=== PATIENT | male | born 1980 | race Two or more races ===

== ENCOUNTER 2016-09-27 14:27 | Inpatient (IN) | payer MEDICAID ==
[~2016-09-27] VITALS: Ht 195.6 cm; Wt 103.9 kg
[2016-09-27 14:50] VITALS: BP 127/77
[2016-09-27 14:57] LABS: BASOPHILS # (AUTO) 0.1 /CMM (0.0-0.2); BASOPHILS % (AUTO) 0.5 % (0.0-2.0); DIFF TOTAL % 100 %; HEMATOCRIT 38 % (39-51); HEMOGLOBIN 11.4 g/dL (13.5-17.5); LYMPHOCYTES # (AUTO) 0.2 /CMM (0.8-4.8); LYMPHOCYTES % (AUTO) 1.2 % (20.0-44.0); MEAN CORPUSCULAR HEMOGLOBIN 21 PG (26.0-33.0); MEAN CORPUSCULAR HGB CONC 30 g/dl (31.0-36.0); MEAN CORPUSCULAR VOLUME 71 fL (80-96); MONOCYTES # (AUTO) 0.1 /CMM (0.1-1.30); MONOCYTES % (AUTO) 0.5 % (2.0-12.0); NEUTROPHILS # (AUTO) 19.3 /CMM (1.8-8.9); NEUTROPHILS % (AUTO) 97.8 % (43.0-81.0); PLATELET COUNT (AUTO) 213 /CMM (150-450); RED BLOOD CELL COUNT(AUTO) 5.37 MIL/uL (4.5-6.0); WHITE BLOOD COUNT (AUTO) 19.7 K/uL (4.3-11.0)
[2016-09-27] MEDS ORDERED: IV NS 0.9% 1,000 ML BAG IV ONE (15:00)
[2016-09-27 15:12] LABS: INR 1.1 (0.87-1.13); PROTHROMBIN TIME 11.6 SECS (9.5-12.7)
[2016-09-27 15:20] LABS: ANION GAP 13 (5-14); CALCIUM, SERUM 8.6 mg/dL (8.5-10.1); CARBON DIOXIDE 24 mmol/L (21-32); CHLORIDE 98 mmol/L (98-107); CREATININE 0.5 mg/dL (0.6-1.3); GFR 189 mL/min (>60); GLUCOSE 168 mg/dL (74-106); POTASSIUM 4.2 mmol/L (3.5-5.1); SODIUM SERUM 131 mmol/L (136-145); UREA NITROGEN, BLOOD 19 mg/dL (7-18)
[2016-09-27 15:21] LABS: ALANINE AMINOTRANSFERASE 76 U/L (12-78); ALBUMIN 2.7 g/dL (3.4-5.0); ASPARTATE AMINOTRANSFERASE 45 U/L (15-37); BILIRUBIN,DIRECT 1.1 mg/dL (0.0-0.2); BILIRUBIN,TOTAL 1.4 mg/dL (0.2-1.0); INDIRECT BILIRUBIN 0.3 mg/dL (0.0-1.1); TOTAL PROTEIN, SERUM 8.3 g/dL (6.4-8.2)
[2016-09-27 15:39] LABS: TROPONIN I < 0.017 ng/mL (0.00-0.056)
[2016-09-27] MEDS ORDERED: IV NS 0.9% 2,000 ML ONE (15:48)
[2016-09-27] MEDS ORDERED: IV SET PRIMARY PUMP SET 1 EA INFUS.SET MC ONE ×3 (15:48→21:15)
[2016-09-27] MEDS ORDERED: PHENOBARBITAL SODIUM 130 MG/ML VIAL ONE (15:58)
[2016-09-27] MEDS ORDERED: LEVOFLOXACIN 750 MG /D5W 150ML 150 ML IV ONE ×2 (16:00→16:19)
[2016-09-27] MEDS ORDERED: LORAZEPAM ORAL SOLN 2 MG/ML ORAL.CONC PO PRN (16:00)
[2016-09-27] MEDS ORDERED: VANCOMYCIN 1 GM in IV D5W 250 ML IV ONE (16:00)
[2016-09-27] MEDS ORDERED: PIPERACILLIN /TAZOBACTAM 3.375 G in IV D5W 50 ML IV ONE ×2 (16:00→19:30)
[2016-09-27] MEDS ORDERED: PHENOBARBITAL 60 MG/15 ML UDC NG SCH (16:00)
[2016-09-27] MEDS ORDERED: PHENOBARBITAL 30 MG TABLET ONE ×2 (16:02→22:24)
[2016-09-27 16:06] LABS: BAND % (MANUAL) 19 % (0.0-5.0); LYMPHOCYTES % (MANUAL) 1 % (16-48)
[2016-09-27] MEDS ORDERED: LORAZEPAM 1 MG TABLET ONE (16:46)
[2016-09-27] MEDS ORDERED: POLY119P2 GT (16:50)
[2016-09-27] MEDS ORDERED: INSU3INS6 SQ (16:50)
[2016-09-27] MEDS ORDERED: NA P133E RC (16:50)
[2016-09-27] MEDS ORDERED: LEVA1.2524 NEB (16:50)
[2016-09-27] MEDS ORDERED: LORA2TAB GT (16:50)
[2016-09-27] MEDS ORDERED: METO5SOL2 GT (16:50)
[2016-09-27] MEDS ORDERED: POTA20LI4 GT (16:50)
[2016-09-27] MEDS ORDERED: IPRA0.2S49 NEB (16:50)
[2016-09-27] MEDS ORDERED: ASCO250T6 PO (16:50)
[2016-09-27] MEDS ORDERED: INSU100V27 SQ (16:50)
[2016-09-27] MEDS ORDERED: DIPH25CA83 GT (16:50)
[2016-09-27] MEDS ORDERED: PHEN64.8 GT (16:50)
[2016-09-27] MEDS ORDERED: BISA10SU8 RC (16:50)
[2016-09-27] MEDS ORDERED: LORA2TAB95 GT (16:50)
[2016-09-27] MEDS ORDERED: BACL10TA PO (16:50)
[2016-09-27] MEDS ORDERED: ACET100V5 NEB (16:50)
[2016-09-27] MEDS ORDERED: ASCO250T5 GT (16:50)
[2016-09-27] MEDS ORDERED: MULT9LIQ6 GT (16:50)
[2016-09-27] MEDS ORDERED: LACT10SO GT (16:50)
[2016-09-27] MEDS ORDERED: SILD20TA2 GT (16:50)
[2016-09-27] MEDS ORDERED: DIGO125T GT (16:50)
[2016-09-27] MEDS ORDERED: ALBU2.5V38 NEB (16:50)
[2016-09-27] MEDS ORDERED: OMEP20TA68 PO (16:50)
[2016-09-27] MEDS ORDERED: ACET-2605 GT (16:50)
[2016-09-27] MEDS ORDERED: SENN8.8S11 GT (16:50)
[2016-09-27] MEDS ORDERED: IBUP-1482 GT (16:50)
[2016-09-27] MEDS ORDERED: METO5SOL20 GT (16:50)
[2016-09-27] MEDS ORDERED: SUCR1ORA6 GT (16:50)
[2016-09-27] MEDS ORDERED: IV NS 0.9% 1,000 ML IV PRN (19:08)
[2016-09-27 19:12] LABS: KETONES,URINE Negative (NEGATIVE); LEUKOCYTE ESTERASE ,URINE Large (NEGATIVE); PH,URINE 6.5 (5.0-8.0)
[2016-09-27 19:13] LABS: ADD UA MICROSCOPIC YES
[2016-09-27 19:29] LABS: ADD URINE CULTURE YES; WBC,URINE TOO NUMEROUS TO COUN /HPF (0-3)
[2016-09-27] MEDS ORDERED: ACETAMINOPHEN 650 MG/SUPP.RECT RC PRN (19:30)
[2016-09-27] MEDS ORDERED: BISACODYL SUPP (10 MG) 10 MG/SUPP.RECT SUPP.RECT RC PRN (19:30)
[2016-09-27] MEDS ORDERED: MAG HYDROX/AL HYDROX/SIMETH 30 ML UDC PO PRN (19:30)
[2016-09-27] MEDS ORDERED: ZOLPIDEM TARTRATE 5 MG TABLET PO PRN (19:30)
[2016-09-27] MEDS ORDERED: DEXTROSE 50%-WATER 50 ML DISP.SYRIN IV PRN (19:30)
[2016-09-27] MEDS ORDERED: ONDANSETRON HCL/PF 4 MG/2 ML VIAL IVP PRN (19:30)
[2016-09-27] MEDS ORDERED: Z GUARD REMEDY 2 OZ OINT TP PRN (19:30)
[2016-09-27 19:35] VITALS: BP 132/84
[2016-09-27 20:30] VITALS: BP 123/75
[2016-09-27] MEDS ORDERED: SUCRALFATE 1 G/10 ML UDC GT SCH (21:00)
[2016-09-27] MEDS ORDERED: SECONDARY IV SET 1 EA INFUS.SET MC ONE (21:15)
[2016-09-27] MEDS: SUCRALFATE 1 G/10 ML UDC GT SCH (21:22)
[2016-09-27] MEDS: PIPERACILLIN /TAZOBACTAM 3.375 G in IV D5W 50 ML IV SCH (21:24)
[2016-09-27] MEDS: ENOXAPARIN SODIUM 40 MG/0.4 ML DISP.SYRIN SQ SCH (21:28)
[2016-09-27] MEDS ORDERED: FOS GT PRN (21:30)
[2016-09-27] MEDS ORDERED: [UNRECOGNIZED DRUG - OTHER] GT PRN (21:30)
[2016-09-27] MEDS ORDERED: INULIN GT PRN (21:30)
[2016-09-27] MEDS: PHENOBARBITAL 30 MG TABLET PO SCH (22:45)
[2016-09-27] MEDS ORDERED: FIBERSOURCE HN 1,000 ML BOTTLE GT PRN (23:00)
[2016-09-27] MEDS: LORAZEPAM 1 MG TABLET GT SCH (23:24)
[2016-09-27] MEDS: BLOOD SUGAR DIAGNOSTIC 1 EACH STRIP IN SCH (23:24)
[2016-09-27] MEDS: diphenhydrAMINE HCL 25 MG CAPSULE PO SCH (23:24)
[2016-09-28] VITALS: BP 103/72
[2016-09-28] MEDS ORDERED: ALBUTEROL FS 2.5 MG/3 ML VIAL.NEB NEB SCH
[2016-09-28] MEDS ORDERED: IPRATROPIUM NEB FS 0.5 MG/2.5 ML AMPUL.NEB NEB SCH
[2016-09-28] MEDS: PIPERACILLIN /TAZOBACTAM 3.375 G in IV D5W 50 ML IV SCH ×4 (01:33→20:56)
[2016-09-28] MEDS: IV NS 0.9% 1,000 ML IV PRN ×2 (01:34→14:04)
[2016-09-28 04:00] VITALS: BP 105/70
[2016-09-28] MEDS: BLOOD SUGAR DIAGNOSTIC 1 EACH STRIP IN SCH ×4 (05:30→23:32)
[2016-09-28] MEDS: diphenhydrAMINE HCL 25 MG CAPSULE PO SCH ×3 (05:31→18:46)
[2016-09-28] MEDS: LORAZEPAM 1 MG TABLET GT SCH ×5 (05:31→23:32)
[2016-09-28] MEDS: ALBUTEROL FS 2.5 MG/3 ML VIAL.NEB NEB SCH ×3 (07:25→19:40)
[2016-09-28] MEDS: IPRATROPIUM NEB FS 0.5 MG/2.5 ML AMPUL.NEB NEB SCH ×3 (07:25→19:40)
[2016-09-28 08:00] VITALS: BP 118/80
[2016-09-28 08:16] LABS: DIFF TOTAL % 100 %; EOSINOPHILS # (AUTO) 0.1 /CMM (0.0-0.7); EOSINOPHILS % (AUTO) 0.7 % (0.0-6.0); HEMATOCRIT 36 % (39-51); HEMOGLOBIN 11.1 g/dL (13.5-17.5); LYMPHOCYTES # (AUTO) 0.7 /CMM (0.8-4.8); LYMPHOCYTES % (AUTO) 5.7 % (20.0-44.0); MEAN CORPUSCULAR HEMOGLOBIN 22 PG (26.0-33.0); MEAN CORPUSCULAR HGB CONC 31 g/dl (31.0-36.0); MEAN CORPUSCULAR VOLUME 71 fL (80-96); MONOCYTES # (AUTO) 0.6 /CMM (0.1-1.30); MONOCYTES % (AUTO) 4.7 % (2.0-12.0); NEUTROPHILS # (AUTO) 11.3 /CMM (1.8-8.9); NEUTROPHILS % (AUTO) 88.9 % (43.0-81.0); PLATELET COUNT (AUTO) 224 /CMM (150-450); RED BLOOD CELL COUNT(AUTO) 4.98 MIL/uL (4.5-6.0); WHITE BLOOD COUNT (AUTO) 12.7 K/uL (4.3-11.0)
[2016-09-28 08:35] LABS: CALCIUM, SERUM 8.3 mg/dL (8.5-10.1); CREATININE 0.6 mg/dL (0.6-1.3); POTASSIUM 3.7 mmol/L (3.5-5.1)
[2016-09-28] MEDS ORDERED: DIGOXIN 0.125 MG TABLET GT PRN (09:00)
[2016-09-28] MEDS: BACLOFEN (10 MG) 10 MG TABLET PO SCH ×3 (09:17→16:43)
[2016-09-28] MEDS: SUCRALFATE 1 G/10 ML UDC GT SCH ×4 (09:17→20:57)
[2016-09-28] MEDS: PANTOPRAZOLE 40 MG VIAL IV SCH (09:18)
[2016-09-28] MEDS: PHENOBARBITAL 30 MG TABLET PO SCH ×2 (09:18→16:42)
[2016-09-28] MEDS ORDERED: FLU VACC QS 2016-17(36MOS+)/PF 0.5 ML DISP.SYRIN IM ONE (10:30)
[2016-09-28 12:00] VITALS: BP 118/79
[2016-09-28 12:22] LABS: ANISOCYTOSIS 2+; HYPOCHROMASIA 1+; LYMPHOCYTES % (MANUAL) 12 % (16-48); MICROCYTOSIS 1+; PLATELET ESTIMATE ADEQUATE
[2016-09-28] MEDS ORDERED: PNEUMOCOCCAL 23-VAL P-SAC VAC 0.5 ML VIAL SQ ONE (13:00)
[2016-09-28] MEDS: INSULIN REGULAR, HUMAN 100 UNIT/ML 3 ML VIAL SQ PRN ×3 (13:10→23:33)
[2016-09-28] MEDS: [UNRECOGNIZED DRUG - OTHER] GT PRN (13:12)
[2016-09-28] MEDS: INULIN GT PRN (13:12)
[2016-09-28] MEDS: FOS GT PRN (13:12)
[2016-09-28] MEDS ORDERED: Z GUARD REMEDY 2 OZ OINT TP PRN (14:00)
[2016-09-28] MEDS ORDERED: K PHOS NEUTRAL 250 MG TABLET PO ONE (15:30)
[2016-09-28 16:00] VITALS: BP 109/61
[2016-09-28] MEDS ORDERED: SECONDARY IV SET 1 EA INFUS.SET MC ONE ×2 (16:38→23:17)
[2016-09-28] MEDS: Magnesium 1GM/D5W 100ML PREMIX 100 ML IV SCH ×2 (16:42→18:46)
[2016-09-28] MEDS: Z GUARD REMEDY 2 OZ OINT TP SCH (16:43)
[2016-09-28] MEDS: NEOMY SULF/BACITRAC ZN/POLY 15 GM TUBE TP SCH (16:45)
[2016-09-28 20:00] VITALS: BP 113/70
[2016-09-28] MEDS ORDERED: LORAZEPAM INJ 2 MG/ML VIAL IV PRN (20:00)
[2016-09-28] MEDS: ENOXAPARIN SODIUM 40 MG/0.4 ML DISP.SYRIN SQ SCH (21:01)
[2016-09-28] MEDS ORDERED: VANCOMYCIN 1 GM in IV D5W 250 ML IV ONE (22:30)
[2016-09-28] MEDS ORDERED: VANCOMYCIN 1 GM VIAL ONE (22:34)
[2016-09-28] MEDS ORDERED: IV D5W 250 ML IV ONE (23:14)
[2016-09-29] VITALS: BP 115/69
[2016-09-29] MEDS: PIPERACILLIN /TAZOBACTAM 3.375 G in IV D5W 50 ML IV SCH ×4 (01:01→18:14)
[2016-09-29] MEDS: diphenhydrAMINE HCL 25 MG CAPSULE PO SCH ×4 (01:01→18:15)
[2016-09-29] MEDS: IPRATROPIUM NEB FS 0.5 MG/2.5 ML AMPUL.NEB NEB SCH ×4 (01:22→19:45)
[2016-09-29] MEDS: ALBUTEROL FS 2.5 MG/3 ML VIAL.NEB NEB SCH ×4 (01:22→19:45)
[2016-09-29 04:00] VITALS: BP 109/69
[2016-09-29] MEDS: LORAZEPAM 1 MG TABLET GT SCH ×3 (05:49→18:15)
[2016-09-29] MEDS: INSULIN REGULAR, HUMAN 100 UNIT/ML 3 ML VIAL SQ PRN ×2 (05:59→13:15)
[2016-09-29] MEDS: BLOOD SUGAR DIAGNOSTIC 1 EACH STRIP IN SCH ×3 (05:59→18:20)
[2016-09-29 07:08] LABS: BASOPHILS % (AUTO) 0.1 % (0.0-2.0); DIFF TOTAL % 100 %; EOSINOPHILS # (AUTO) 0.1 /CMM (0.0-0.7); EOSINOPHILS % (AUTO) 0.8 % (0.0-6.0); HEMATOCRIT 32 % (39-51); HEMOGLOBIN 10.2 g/dL (13.5-17.5); LYMPHOCYTES % (AUTO) 10.9 % (20.0-44.0); MEAN CORPUSCULAR HEMOGLOBIN 22 PG (26.0-33.0); MEAN CORPUSCULAR HGB CONC 32 g/dl (31.0-36.0); MEAN CORPUSCULAR VOLUME 71 fL (80-96); MONOCYTES # (AUTO) 0.6 /CMM (0.1-1.30); NEUTROPHILS # (AUTO) 7.8 /CMM (1.8-8.9); NEUTROPHILS % (AUTO) 82.2 % (43.0-81.0); PLATELET COUNT (AUTO) 208 /CMM (150-450); RED BLOOD CELL COUNT(AUTO) 4.56 MIL/uL (4.5-6.0); WHITE BLOOD COUNT (AUTO) 9.5 K/uL (4.3-11.0)
[2016-09-29 07:29] LABS: CALCIUM, SERUM 8.2 mg/dL (8.5-10.1); CREATININE 0.6 mg/dL (0.6-1.3); POTASSIUM 3.3 mmol/L (3.5-5.1)
[2016-09-29 08:00] VITALS: BP 121/78
[2016-09-29] MEDS ORDERED: VANCOMYCIN 1.25 GM in IV D5W 500 ML IV SCH (08:00)
[2016-09-29] MEDS ORDERED: FEE PK DOSING 1 MIN EA MC ONE (08:12)
[2016-09-29] MEDS: MULTIVITAMIN LIQ 5 ML UDC GT SCH (09:47)
[2016-09-29] MEDS: INULIN GT PRN (09:47)
[2016-09-29] MEDS: [UNRECOGNIZED DRUG - OTHER] GT PRN (09:47)
[2016-09-29] MEDS: PANTOPRAZOLE 40 MG VIAL IV SCH (09:47)
[2016-09-29] MEDS: SUCRALFATE 1 G/10 ML UDC GT SCH ×4 (09:47→21:45)
[2016-09-29] MEDS: FOS GT PRN (09:47)
[2016-09-29] MEDS: BACLOFEN (10 MG) 10 MG TABLET PO SCH ×3 (09:47→18:15)
[2016-09-29] MEDS: ASCORBIC ACID 500 MG TABLET GT SCH (09:48)
[2016-09-29] MEDS: Z GUARD REMEDY 2 OZ OINT TP SCH ×2 (09:48→18:16)
[2016-09-29] MEDS: PHENOBARBITAL 30 MG TABLET PO SCH ×2 (09:48→18:15)
[2016-09-29] MEDS: NEOMY SULF/BACITRAC ZN/POLY 15 GM TUBE TP SCH (09:49)
[2016-09-29 12:00] VITALS: BP_SYST 119; BP_DIAS 77; BP_DIAS 78
[2016-09-29] MEDS ORDERED: POTASSIUM CHLORIDE 20 MEQ TAB.PRT.SR PO SCH (12:30)
[2016-09-29] MEDS: IV NS 0.9% 1,000 ML IV PRN ×2 (12:58→21:45)
[2016-09-29] MEDS ORDERED: POTASSIUM CHLORIDE 20 MEQ TAB.PRT.SR PO ONE (14:30)
[2016-09-29] MEDS: VANCOMYCIN HCL 125 MG/2.5 ML ORAL.SUSP PO SCH ×2 (15:00→21:45)
[2016-09-29 16:00] VITALS: BP 118/77
[2016-09-29 20:00] VITALS: BP 124/83
[2016-09-30] VITALS: BP 141/95
[2016-09-30] MEDS: diphenhydrAMINE HCL 25 MG CAPSULE PO SCH ×4 (00:57→18:06)
[2016-09-30] MEDS: FOS GT PRN ×2 (00:57→17:06)
[2016-09-30] MEDS: INULIN GT PRN ×2 (00:57→17:06)
[2016-09-30] MEDS: [UNRECOGNIZED DRUG - OTHER] GT PRN ×2 (00:57→17:06)
[2016-09-30] MEDS: LORAZEPAM 1 MG TABLET GT SCH ×4 (00:57→18:06)
[2016-09-30] MEDS: PIPERACILLIN /TAZOBACTAM 3.375 G in IV D5W 50 ML IV SCH ×3 (00:57→14:09)
[2016-09-30] MEDS: BLOOD SUGAR DIAGNOSTIC 1 EACH STRIP IN SCH ×4 (01:00→17:06)
[2016-09-30] MEDS: IPRATROPIUM NEB FS 0.5 MG/2.5 ML AMPUL.NEB NEB SCH ×4 (01:42→19:50)
[2016-09-30] MEDS: ALBUTEROL FS 2.5 MG/3 ML VIAL.NEB NEB SCH ×4 (01:42→19:50)
[2016-09-30 04:00] VITALS: BP 138/86
[2016-09-30] MEDS: VANCOMYCIN HCL 125 MG/2.5 ML ORAL.SUSP PO SCH ×4 (05:58→18:08)
[2016-09-30] MEDS: IV NS 0.9% 1,000 ML IV PRN ×2 (06:11→15:04)
[2016-09-30 07:25] LABS: CALCIUM, SERUM 8.6 mg/dL (8.5-10.1); CREATININE 0.5 mg/dL (0.6-1.3); PHOSPHORUS 2.7 mg/dL (2.5-4.9); POTASSIUM 3.9 mmol/L (3.5-5.1)
[2016-09-30 08:00] VITALS: BP 131/84
[2016-09-30] MEDS: PHENOBARBITAL 30 MG TABLET PO SCH ×2 (08:37→17:06)
[2016-09-30] MEDS: MULTIVITAMIN LIQ 5 ML UDC GT SCH (08:37)
[2016-09-30] MEDS: BACLOFEN (10 MG) 10 MG TABLET PO SCH ×3 (08:37→17:06)
[2016-09-30] MEDS: PANTOPRAZOLE 40 MG VIAL IV SCH (08:37)
[2016-09-30] MEDS: ASCORBIC ACID 500 MG TABLET GT SCH (08:37)
[2016-09-30] MEDS: Z GUARD REMEDY 2 OZ OINT TP SCH ×2 (08:38→17:07)
[2016-09-30] MEDS: SUCRALFATE 1 G/10 ML UDC GT SCH ×4 (08:41→21:31)
[2016-09-30] MEDS: NEOMY SULF/BACITRAC ZN/POLY 15 GM TUBE TP SCH (09:52)
[2016-09-30 12:00] VITALS: BP 135/88
[2016-09-30] MEDS: Magnesium 1GM/D5W 100ML PREMIX 100 ML IV SCH ×2 (12:37→15:05)
[2016-09-30] MEDS: INSULIN REGULAR, HUMAN 100 UNIT/ML 3 ML VIAL SQ PRN ×2 (12:42→17:35)
[2016-09-30 16:00] VITALS: BP 127/85
[2016-09-30] MEDS ORDERED: FEE PK DOSING 1 MIN EA MC ONE (17:46)
[2016-09-30] MEDS: GENTAMICIN 120 MG in IV D5W 100 ML IV SCH (19:04)
[2016-09-30 20:00] VITALS: BP 119/72
[2016-10-01] VITALS: BP 113/82
[2016-10-01] MEDS: diphenhydrAMINE HCL 25 MG CAPSULE PO SCH ×2 (00:44→05:18)
[2016-10-01] MEDS: VANCOMYCIN HCL 125 MG/2.5 ML ORAL.SUSP PO SCH ×4 (00:44→18:18)
[2016-10-01] MEDS: LORAZEPAM 1 MG TABLET GT SCH ×4 (00:44→17:13)
[2016-10-01] MEDS: BLOOD SUGAR DIAGNOSTIC 1 EACH STRIP IN SCH ×4 (00:46→17:18)
[2016-10-01] MEDS: IPRATROPIUM NEB FS 0.5 MG/2.5 ML AMPUL.NEB NEB SCH ×3 (01:49→12:42)
[2016-10-01] MEDS: ALBUTEROL FS 2.5 MG/3 ML VIAL.NEB NEB SCH ×3 (01:50→12:42)
[2016-10-01] MEDS: GENTAMICIN 120 MG in IV D5W 100 ML IV SCH ×3 (02:40→18:17)
[2016-10-01] MEDS: INULIN GT PRN ×2 (02:40→18:23)
[2016-10-01] MEDS: [UNRECOGNIZED DRUG - OTHER] GT PRN ×2 (02:40→18:23)
[2016-10-01] MEDS: FOS GT PRN ×2 (02:40→18:23)
[2016-10-01] MEDS: IV NS 0.9% 1,000 ML IV PRN ×2 (02:40→17:13)
[2016-10-01 04:00] VITALS: BP 122/77
[2016-10-01 07:06] LABS: CALCIUM, SERUM 8.7 mg/dL (8.5-10.1); CREATININE 0.6 mg/dL (0.6-1.3); POTASSIUM 3.7 mmol/L (3.5-5.1)
[2016-10-01 08:00] VITALS: BP 107/68
[2016-10-01] MEDS: BACLOFEN (10 MG) 10 MG TABLET PO SCH ×3 (08:31→16:26)
[2016-10-01] MEDS: ASCORBIC ACID 500 MG TABLET GT SCH (08:31)
[2016-10-01] MEDS: MULTIVITAMIN LIQ 5 ML UDC GT SCH (08:31)
[2016-10-01] MEDS: SUCRALFATE 1 G/10 ML UDC GT SCH ×4 (08:31→20:56)
[2016-10-01] MEDS: PHENOBARBITAL 30 MG TABLET PO SCH ×2 (08:31→16:26)
[2016-10-01] MEDS: PANTOPRAZOLE 40 MG VIAL IV SCH (08:31)
[2016-10-01] MEDS: Z GUARD REMEDY 2 OZ OINT TP SCH ×2 (08:32→16:27)
[2016-10-01] MEDS: NEOMY SULF/BACITRAC ZN/POLY 15 GM TUBE TP SCH (08:32)
[2016-10-01] MEDS ORDERED: diphenhydrAMINE HCL 25 MG CAPSULE PO PRN (10:30)
[2016-10-01 12:00] VITALS: BP 118/79
[2016-10-01] MEDS ORDERED: SECONDARY IV SET 1 EA INFUS.SET MC ONE (12:28)
[2016-10-01] MEDS: Magnesium 1GM/D5W 100ML PREMIX 100 ML IV SCH ×2 (12:32→13:39)
[2016-10-01 16:00] VITALS: BP 123/76
[2016-10-01 20:00] VITALS: BP 114/65
[2016-10-02] VITALS: BP 107/66
[2016-10-02] MEDS: VANCOMYCIN HCL 125 MG/2.5 ML ORAL.SUSP PO SCH ×5 (00:01→23:52)
[2016-10-02] MEDS: LORAZEPAM 1 MG TABLET GT SCH ×5 (00:02→23:52)
[2016-10-02] MEDS: BLOOD SUGAR DIAGNOSTIC 1 EACH STRIP IN SCH ×5 (00:03→23:52)
[2016-10-02] MEDS: ALBUTEROL FS 2.5 MG/3 ML VIAL.NEB NEB SCH ×4 (01:31→19:56)
[2016-10-02] MEDS: IPRATROPIUM NEB FS 0.5 MG/2.5 ML AMPUL.NEB NEB SCH ×4 (01:31→19:56)
[2016-10-02] MEDS: GENTAMICIN 120 MG in IV D5W 100 ML IV SCH ×3 (02:02→17:01)
[2016-10-02 04:00] VITALS: BP 99/61
[2016-10-02] MEDS: IV NS 0.9% 1,000 ML IV PRN ×2 (06:09→19:00)
[2016-10-02 07:28] LABS: BASOPHILS % (AUTO) 0.3 % (0.0-2.0); DIFF TOTAL % 100 %; EOSINOPHILS # (AUTO) 0.5 /CMM (0.0-0.7); EOSINOPHILS % (AUTO) 4.4 % (0.0-6.0); HEMATOCRIT 37 % (39-51); HEMOGLOBIN 11.5 g/dL (13.5-17.5); LYMPHOCYTES # (AUTO) 2.6 /CMM (0.8-4.8); MEAN CORPUSCULAR HEMOGLOBIN 22 PG (26.0-33.0); MEAN CORPUSCULAR HGB CONC 31 g/dl (31.0-36.0); MEAN CORPUSCULAR VOLUME 71 fL (80-96); MONOCYTES # (AUTO) 0.8 /CMM (0.1-1.30); MONOCYTES % (AUTO) 7.2 % (2.0-12.0); NEUTROPHILS # (AUTO) 6.9 /CMM (1.8-8.9); NEUTROPHILS % (AUTO) 64.1 % (43.0-81.0); PLATELET COUNT (AUTO) 261 /CMM (150-450); RED BLOOD CELL COUNT(AUTO) 5.25 MIL/uL (4.5-6.0); WHITE BLOOD COUNT (AUTO) 10.7 K/uL (4.3-11.0)
[2016-10-02 07:41] LABS: CALCIUM, SERUM 8.8 mg/dL (8.5-10.1); CREATININE 0.6 mg/dL (0.6-1.3); PHOSPHORUS 4.2 mg/dL (2.5-4.9); POTASSIUM 3.8 mmol/L (3.5-5.1)
[2016-10-02 08:00] VITALS: BP 125/80
[2016-10-02] MEDS: BACLOFEN (10 MG) 10 MG TABLET PO SCH ×3 (08:09→16:32)
[2016-10-02] MEDS: ASCORBIC ACID 500 MG TABLET GT SCH (08:09)
[2016-10-02] MEDS: MULTIVITAMIN LIQ 5 ML UDC GT SCH (08:09)
[2016-10-02] MEDS: PANTOPRAZOLE 40 MG VIAL IV SCH (08:09)
[2016-10-02] MEDS: PHENOBARBITAL 30 MG TABLET PO SCH ×2 (08:09→16:32)
[2016-10-02] MEDS: SUCRALFATE 1 G/10 ML UDC GT SCH ×4 (08:14→20:40)
[2016-10-02] MEDS: Z GUARD REMEDY 2 OZ OINT TP SCH ×2 (08:20→16:36)
[2016-10-02] MEDS: NEOMY SULF/BACITRAC ZN/POLY 15 GM TUBE TP SCH (08:20)
[2016-10-02] MEDS: [UNRECOGNIZED DRUG - OTHER] GT PRN ×2 (09:43→23:51)
[2016-10-02] MEDS: FOS GT PRN ×2 (09:43→23:51)
[2016-10-02] MEDS: INULIN GT PRN ×2 (09:43→23:51)
[2016-10-02] MEDS ORDERED: Magnesium 1GM/D5W 100ML PREMIX 100 ML IV SCH ×2 (10:30→11:00)
[2016-10-02] MEDS: INSULIN REGULAR, HUMAN 100 UNIT/ML 3 ML VIAL SQ PRN ×2 (11:28→16:57)
[2016-10-02 12:00] VITALS: BP 121/83
[2016-10-02 16:00] VITALS: BP 122/79
[2016-10-02 20:00] VITALS: BP 113/69
[2016-10-03 00:04] VITALS: BP 115/76
[2016-10-03] MEDS: ALBUTEROL FS 2.5 MG/3 ML VIAL.NEB NEB SCH ×4 (01:27→19:50)
[2016-10-03] MEDS: IPRATROPIUM NEB FS 0.5 MG/2.5 ML AMPUL.NEB NEB SCH ×4 (01:27→19:50)
[2016-10-03] MEDS: GENTAMICIN 120 MG in IV D5W 100 ML IV SCH ×3 (02:01→17:33)
[2016-10-03 04:00] VITALS: BP 129/86
[2016-10-03] MEDS: VANCOMYCIN HCL 125 MG/2.5 ML ORAL.SUSP PO SCH ×3 (05:16→18:22)
[2016-10-03] MEDS: LORAZEPAM 1 MG TABLET GT SCH ×3 (05:16→17:33)
[2016-10-03] MEDS: BLOOD SUGAR DIAGNOSTIC 1 EACH STRIP IN SCH ×3 (05:17→17:58)
[2016-10-03] MEDS: IV NS 0.9% 1,000 ML IV PRN ×2 (05:17→23:10)
[2016-10-03 06:55] LABS: BASOPHILS % (AUTO) 0.3 % (0.0-2.0); DIFF TOTAL % 100 %; EOSINOPHILS # (AUTO) 0.4 /CMM (0.0-0.7); EOSINOPHILS % (AUTO) 4.5 % (0.0-6.0); HEMATOCRIT 36 % (39-51); HEMOGLOBIN 11.1 g/dL (13.5-17.5); LYMPHOCYTES # (AUTO) 2.3 /CMM (0.8-4.8); LYMPHOCYTES % (AUTO) 23.7 % (20.0-44.0); MEAN CORPUSCULAR HEMOGLOBIN 22 PG (26.0-33.0); MEAN CORPUSCULAR HGB CONC 31 g/dl (31.0-36.0); MEAN CORPUSCULAR VOLUME 71 fL (80-96); MONOCYTES # (AUTO) 0.6 /CMM (0.1-1.30); MONOCYTES % (AUTO) 6.1 % (2.0-12.0); NEUTROPHILS # (AUTO) 6.4 /CMM (1.8-8.9); NEUTROPHILS % (AUTO) 65.4 % (43.0-81.0); PLATELET COUNT (AUTO) 271 /CMM (150-450); RED BLOOD CELL COUNT(AUTO) 5.03 MIL/uL (4.5-6.0); WHITE BLOOD COUNT (AUTO) 9.9 K/uL (4.3-11.0)
[2016-10-03 07:38] LABS: CALCIUM, SERUM 8.2 mg/dL (8.5-10.1); CREATININE 0.6 mg/dL (0.6-1.3); PHOSPHORUS 4.6 mg/dL (2.5-4.9); POTASSIUM 3.6 mmol/L (3.5-5.1)
[2016-10-03 08:00] VITALS: BP 112/76
[2016-10-03] MEDS: ASCORBIC ACID 500 MG TABLET GT SCH (09:33)
[2016-10-03] MEDS: BACLOFEN (10 MG) 10 MG TABLET PO SCH ×3 (09:33→16:15)
[2016-10-03] MEDS: MULTIVITAMIN LIQ 5 ML UDC GT SCH (09:33)
[2016-10-03] MEDS: PANTOPRAZOLE 40 MG VIAL IV SCH (09:33)
[2016-10-03] MEDS: NEOMY SULF/BACITRAC ZN/POLY 15 GM TUBE TP SCH (09:33)
[2016-10-03] MEDS: PHENOBARBITAL 30 MG TABLET PO SCH ×2 (09:33→16:15)
[2016-10-03] MEDS: Z GUARD REMEDY 2 OZ OINT TP SCH ×2 (09:33→17:39)
[2016-10-03] MEDS: SUCRALFATE 1 G/10 ML UDC GT SCH ×4 (09:42→21:24)
[2016-10-03] MEDS ORDERED: SECONDARY IV SET 1 EA INFUS.SET MC ONE (11:01)
[2016-10-03] MEDS: Magnesium 1GM/D5W 100ML PREMIX 100 ML IV SCH ×4 (11:08→16:14)
[2016-10-03 12:00] VITALS: BP 121/78
[2016-10-03 16:00] VITALS: BP 134/82
[2016-10-03] MEDS: INULIN GT PRN (17:39)
[2016-10-03] MEDS: [UNRECOGNIZED DRUG - OTHER] GT PRN (17:39)
[2016-10-03] MEDS: FOS GT PRN (17:39)
[2016-10-03 20:00] VITALS: BP 115/87
[2016-10-03] MEDS ORDERED: IV SET PRIMARY PUMP SET 1 EA INFUS.SET MC ONE (23:07)
[2016-10-04] VITALS: BP_SYST 113; BP_SYST 122; BP_DIAS 61; BP_DIAS 86
[2016-10-04] MEDS: VANCOMYCIN HCL 125 MG/2.5 ML ORAL.SUSP PO SCH ×5 (00:15→23:41)
[2016-10-04] MEDS: BLOOD SUGAR DIAGNOSTIC 1 EACH STRIP IN SCH ×5 (00:15→23:41)
[2016-10-04] MEDS: IPRATROPIUM NEB FS 0.5 MG/2.5 ML AMPUL.NEB NEB SCH ×4 (01:01→19:53)
[2016-10-04] MEDS: ALBUTEROL FS 2.5 MG/3 ML VIAL.NEB NEB SCH ×4 (01:01→19:53)
[2016-10-04] MEDS: GENTAMICIN 120 MG in IV D5W 100 ML IV SCH ×3 (01:52→17:26)
[2016-10-04 04:00] VITALS: BP 121/88
[2016-10-04] MEDS: LORAZEPAM 1 MG TABLET GT SCH ×5 (06:00→23:41)
[2016-10-04 06:41] LABS: CALCIUM, SERUM 8.5 mg/dL (8.5-10.1); CREATININE 0.5 mg/dL (0.6-1.3); POTASSIUM 3.8 mmol/L (3.5-5.1)
[2016-10-04 08:00] VITALS: BP 116/83
[2016-10-04] MEDS: ASCORBIC ACID 500 MG TABLET GT SCH (08:19)
[2016-10-04] MEDS: SUCRALFATE 1 G/10 ML UDC GT SCH ×4 (08:19→20:14)
[2016-10-04] MEDS: PANTOPRAZOLE 40 MG VIAL IV SCH (08:19)
[2016-10-04] MEDS: MULTIVITAMIN LIQ 5 ML UDC GT SCH (08:19)
[2016-10-04] MEDS: BACLOFEN (10 MG) 10 MG TABLET PO SCH ×3 (08:19→17:21)
[2016-10-04] MEDS: PHENOBARBITAL 30 MG TABLET PO SCH ×2 (08:19→17:21)
[2016-10-04] MEDS: NEOMY SULF/BACITRAC ZN/POLY 15 GM TUBE TP SCH (08:20)
[2016-10-04] MEDS: Z GUARD REMEDY 2 OZ OINT TP SCH ×2 (08:20→17:24)
[2016-10-04] MEDS: IV NS 0.9% 1,000 ML IV PRN (10:49)
[2016-10-04 12:00] VITALS: BP 120/85
[2016-10-04 16:00] VITALS: BP_SYST 118; BP_DIAS 80; BP_DIAS 88
[2016-10-04 20:00] VITALS: BP 122/83
[2016-10-05] VITALS: BP 137/79
[2016-10-05] MEDS: IV NS 0.9% 1,000 ML IV PRN ×2 (00:15→15:14)
[2016-10-05] MEDS: GENTAMICIN 120 MG in IV D5W 100 ML IV SCH ×3 (01:19→17:08)
[2016-10-05] MEDS: ALBUTEROL FS 2.5 MG/3 ML VIAL.NEB NEB SCH ×4 (01:23→20:22)
[2016-10-05] MEDS: IPRATROPIUM NEB FS 0.5 MG/2.5 ML AMPUL.NEB NEB SCH ×4 (01:23→20:22)
[2016-10-05 04:00] VITALS: BP 113/75
[2016-10-05] MEDS: BLOOD SUGAR DIAGNOSTIC 1 EACH STRIP IN SCH ×4 (05:08→23:23)
[2016-10-05] MEDS: LORAZEPAM 1 MG TABLET GT SCH ×4 (05:09→23:23)
[2016-10-05] MEDS: VANCOMYCIN HCL 125 MG/2.5 ML ORAL.SUSP PO SCH ×4 (05:09→23:22)
[2016-10-05 07:05] LABS: CALCIUM, SERUM 8.6 mg/dL (8.5-10.1); CREATININE 0.5 mg/dL (0.6-1.3); POTASSIUM 3.8 mmol/L (3.5-5.1)
[2016-10-05 08:00] VITALS: BP 143/95
[2016-10-05] MEDS: BACLOFEN (10 MG) 10 MG TABLET PO SCH ×3 (08:37→17:07)
[2016-10-05] MEDS: PANTOPRAZOLE 40 MG VIAL IV SCH (08:37)
[2016-10-05] MEDS: ASCORBIC ACID 500 MG TABLET GT SCH (08:37)
[2016-10-05] MEDS: MULTIVITAMIN LIQ 5 ML UDC GT SCH (08:37)
[2016-10-05] MEDS: PHENOBARBITAL 30 MG TABLET PO SCH ×2 (08:37→17:07)
[2016-10-05] MEDS: SUCRALFATE 1 G/10 ML UDC GT SCH ×4 (08:37→21:27)
[2016-10-05] MEDS: Z GUARD REMEDY 2 OZ OINT TP SCH ×2 (08:38→17:10)
[2016-10-05] MEDS: NEOMY SULF/BACITRAC ZN/POLY 15 GM TUBE TP SCH (08:38)
[2016-10-05 12:00] VITALS: BP 138/87
[2016-10-05 16:00] VITALS: BP 127/88
[2016-10-05] MEDS: RIFAXIMIN 200 MG TABLET PO SCH (17:07)
[2016-10-05] MEDS: INULIN GT PRN (17:08)
[2016-10-05] MEDS: [UNRECOGNIZED DRUG - OTHER] GT PRN (17:08)
[2016-10-05] MEDS: FOS GT PRN (17:08)
[2016-10-05] MEDS: CHOLESTYRAMINE/ASPARTAME 4 G/PKT PACKET PO SCH (17:09)
[2016-10-05 20:00] VITALS: BP 129/81
[2016-10-05] MEDS: METRONIDAZOLE 500 MG TABLET PO SCH (21:27)
[2016-10-06] VITALS: BP 141/93
[2016-10-06] MEDS: IPRATROPIUM NEB FS 0.5 MG/2.5 ML AMPUL.NEB NEB SCH ×4 (00:41→20:23)
[2016-10-06] MEDS: ALBUTEROL FS 2.5 MG/3 ML VIAL.NEB NEB SCH ×4 (00:41→20:23)
[2016-10-06] MEDS: GENTAMICIN 120 MG in IV D5W 100 ML IV SCH ×2 (01:00→09:00)
[2016-10-06] MEDS: IV NS 0.9% 1,000 ML IV PRN ×2 (03:03→17:12)
[2016-10-06 04:00] VITALS: BP 133/93
[2016-10-06] MEDS: METRONIDAZOLE 500 MG TABLET PO SCH ×3 (05:04→20:21)
[2016-10-06] MEDS: VANCOMYCIN HCL 125 MG/2.5 ML ORAL.SUSP PO SCH ×3 (05:04→17:12)
[2016-10-06] MEDS: BLOOD SUGAR DIAGNOSTIC 1 EACH STRIP IN SCH ×3 (05:04→17:23)
[2016-10-06] MEDS: LORAZEPAM 1 MG TABLET GT SCH ×3 (05:04→17:12)
[2016-10-06 06:59] LABS: IRON, SERUM 38 ug/dl (50-175); PERCENT SATURATION 14 % (14-33); TOTAL IRON BINDING CAPACITY 280 ug/dl (250-450)
[2016-10-06 07:12] LABS: BASOPHILS % (AUTO) 0.5 % (0.0-2.0); DIFF TOTAL % 100 %; EOSINOPHILS # (AUTO) 0.4 /CMM (0.0-0.7); EOSINOPHILS % (AUTO) 6.1 % (0.0-6.0); HEMATOCRIT 33 % (39-51); HEMOGLOBIN 10.3 g/dL (13.5-17.5); LYMPHOCYTES # (AUTO) 1.4 /CMM (0.8-4.8); LYMPHOCYTES % (AUTO) 18.9 % (20.0-44.0); MEAN CORPUSCULAR HEMOGLOBIN 23 PG (26.0-33.0); MEAN CORPUSCULAR HGB CONC 32 g/dl (31.0-36.0); MEAN CORPUSCULAR VOLUME 71 fL (80-96); MONOCYTES # (AUTO) 0.5 /CMM (0.1-1.30); MONOCYTES % (AUTO) 6.8 % (2.0-12.0); NEUTROPHILS # (AUTO) 4.9 /CMM (1.8-8.9); NEUTROPHILS % (AUTO) 67.7 % (43.0-81.0); PLATELET COUNT (AUTO) 254 /CMM (150-450); WHITE BLOOD COUNT (AUTO) 7.3 K/uL (4.3-11.0)
[2016-10-06 07:18] LABS: CALCIUM, SERUM 7.2 mg/dL (8.5-10.1); CREATININE 0.4 mg/dL (0.6-1.3); PHOSPHORUS 3.5 mg/dL (2.5-4.9); POTASSIUM 3.4 mmol/L (3.5-5.1)
[2016-10-06 08:00] VITALS: BP 142/92
[2016-10-06 08:13] LABS: ANISOCYTOSIS 2+; BAND % (MANUAL) 2 % (0.0-5.0); EOSINOPHILS % (MANUAL) 5 % (0-4); HYPOCHROMASIA 1+; LYMPHOCYTES % (MANUAL) 18 % (16-48); MICROCYTOSIS 2+; PLATELET ESTIMATE ADEQUATE
[2016-10-06] MEDS: BACLOFEN (10 MG) 10 MG TABLET PO SCH ×3 (08:56→16:45)
[2016-10-06] MEDS: ASCORBIC ACID 500 MG TABLET GT SCH (08:56)
[2016-10-06] MEDS: RIFAXIMIN 200 MG TABLET PO SCH ×3 (08:56→16:45)
[2016-10-06] MEDS: PHENOBARBITAL 30 MG TABLET PO SCH ×2 (08:56→16:45)
[2016-10-06] MEDS: MULTIVITAMIN LIQ 5 ML UDC GT SCH (08:56)
[2016-10-06] MEDS: PANTOPRAZOLE 40 MG VIAL IV SCH (08:56)
[2016-10-06] MEDS: CHOLESTYRAMINE/ASPARTAME 4 G/PKT PACKET PO SCH (08:56)
[2016-10-06] MEDS: NEOMY SULF/BACITRAC ZN/POLY 15 GM TUBE TP SCH (08:57)
[2016-10-06] MEDS: Z GUARD REMEDY 2 OZ OINT TP SCH ×2 (08:57→16:45)
[2016-10-06] MEDS: SUCRALFATE 1 G/10 ML UDC GT SCH ×4 (09:08→20:21)
[2016-10-06] MEDS ORDERED: SECONDARY IV SET 1 EA INFUS.SET MC ONE (11:06)
[2016-10-06] MEDS: Magnesium 1GM/D5W 100ML PREMIX 100 ML IV SCH ×4 (11:09→14:13)
[2016-10-06 12:00] VITALS: BP 140/90
[2016-10-06] MEDS ORDERED: POTASSIUM CHLORIDE 20 MEQ POWDER PACKET GT SCH (12:00)
[2016-10-06] MEDS: FOS GT PRN (12:28)
[2016-10-06] MEDS: [UNRECOGNIZED DRUG - OTHER] GT PRN (12:28)
[2016-10-06] MEDS: INULIN GT PRN (12:28)
[2016-10-06 16:00] VITALS: BP 106/73
[2016-10-06] MEDS: FERROUS SULFATE (325 MG) 325 MG/TAB TABLET PO SCH (16:44)
[2016-10-06] MEDS: FIDAXOMICIN 200 MG TABLET PO SCH (18:02)
[2016-10-06 20:00] VITALS: BP 110/71
[2016-10-07] VITALS: BP 122/77
[2016-10-07] MEDS: BLOOD SUGAR DIAGNOSTIC 1 EACH STRIP IN SCH ×4 (00:03→18:11)
[2016-10-07] MEDS: LORAZEPAM 1 MG TABLET GT SCH ×4 (00:24→18:10)
[2016-10-07] MEDS: ALBUTEROL FS 2.5 MG/3 ML VIAL.NEB NEB SCH ×4 (01:49→21:08)
[2016-10-07] MEDS: IPRATROPIUM NEB FS 0.5 MG/2.5 ML AMPUL.NEB NEB SCH ×4 (01:49→21:08)
[2016-10-07 04:00] VITALS: BP 139/90
[2016-10-07] MEDS: IV NS 0.9% 1,000 ML IV PRN ×2 (04:44→18:08)
[2016-10-07] MEDS: METRONIDAZOLE 500 MG TABLET PO SCH ×3 (04:45→21:08)
[2016-10-07] MEDS: [UNRECOGNIZED DRUG - OTHER] GT PRN (04:45)
[2016-10-07] MEDS: FOS GT PRN (04:45)
[2016-10-07] MEDS: INULIN GT PRN (04:45)
[2016-10-07 07:06] LABS: CALCIUM, SERUM 8.7 mg/dL (8.5-10.1); CREATININE 0.6 mg/dL (0.6-1.3); POTASSIUM 3.9 mmol/L (3.5-5.1)
[2016-10-07 08:00] VITALS: BP 132/82
[2016-10-07] MEDS: Z GUARD REMEDY 2 OZ OINT TP SCH ×2 (09:00→17:00)
[2016-10-07] MEDS: SUCRALFATE 1 G/10 ML UDC GT SCH ×4 (09:03→21:08)
[2016-10-07] MEDS: MULTIVITAMIN LIQ 5 ML UDC GT SCH (09:03)
[2016-10-07] MEDS: PHENOBARBITAL 30 MG TABLET PO SCH ×2 (09:03→18:10)
[2016-10-07] MEDS: BACLOFEN (10 MG) 10 MG TABLET PO SCH ×3 (09:03→18:10)
[2016-10-07] MEDS: FERROUS SULFATE (325 MG) 325 MG/TAB TABLET PO SCH ×2 (09:03→18:11)
[2016-10-07] MEDS: ASCORBIC ACID 500 MG TABLET GT SCH (09:03)
[2016-10-07] MEDS: RIFAXIMIN 200 MG TABLET PO SCH ×3 (09:03→18:10)
[2016-10-07] MEDS: PANTOPRAZOLE 40 MG VIAL IV SCH (09:03)
[2016-10-07] MEDS: CHOLESTYRAMINE/ASPARTAME 4 G/PKT PACKET PO SCH (09:03)
[2016-10-07] MEDS: NEOMY SULF/BACITRAC ZN/POLY 15 GM TUBE TP SCH (09:04)
[2016-10-07 12:00] VITALS: BP 124/78
[2016-10-07] MEDS: FIDAXOMICIN 200 MG TABLET PO SCH ×2 (13:49→18:10)
[2016-10-07 16:00] VITALS: BP 120/85
[2016-10-07 20:00] VITALS: BP_SYST 133; BP_DIAS 79; BP_DIAS 88
[2016-10-08] VITALS: BP 137/87
[2016-10-08] MEDS: LORAZEPAM 1 MG TABLET GT SCH ×5 (01:06→23:53)
[2016-10-08] MEDS: INULIN GT PRN (01:30)
[2016-10-08] MEDS: FOS GT PRN (01:30)
[2016-10-08] MEDS: [UNRECOGNIZED DRUG - OTHER] GT PRN (01:30)
[2016-10-08] MEDS: ALBUTEROL FS 2.5 MG/3 ML VIAL.NEB NEB SCH ×4 (01:52→19:55)
[2016-10-08] MEDS: IPRATROPIUM NEB FS 0.5 MG/2.5 ML AMPUL.NEB NEB SCH ×4 (01:53→19:55)
[2016-10-08 04:00] VITALS: BP 129/87
[2016-10-08] MEDS ORDERED: IV SET PRIMARY PUMP SET 1 EA INFUS.SET MC ONE (05:11)
[2016-10-08] MEDS: IV NS 0.9% 1,000 ML IV PRN ×2 (05:22→15:16)
[2016-10-08] MEDS: METRONIDAZOLE 500 MG TABLET PO SCH ×3 (05:22→20:57)
[2016-10-08] MEDS: BLOOD SUGAR DIAGNOSTIC 1 EACH STRIP IN SCH ×5 (05:36→23:53)
[2016-10-08 06:01] LABS: CALCIUM, SERUM 8.8 mg/dL (8.5-10.1); CREATININE 0.6 mg/dL (0.6-1.3); POTASSIUM 3.9 mmol/L (3.5-5.1)
[2016-10-08 08:00] VITALS: BP 121/75
[2016-10-08] MEDS: CHOLESTYRAMINE/ASPARTAME 4 G/PKT PACKET PO SCH (09:00)
[2016-10-08] MEDS: FIDAXOMICIN 200 MG TABLET PO SCH ×2 (09:00→17:00)
[2016-10-08] MEDS: Z GUARD REMEDY 2 OZ OINT TP SCH ×2 (09:00→17:00)
[2016-10-08] MEDS: NEOMY SULF/BACITRAC ZN/POLY 15 GM TUBE TP SCH (09:00)
[2016-10-08] MEDS: PANTOPRAZOLE 40 MG VIAL IV SCH (10:06)
[2016-10-08] MEDS: FERROUS SULFATE (325 MG) 325 MG/TAB TABLET PO SCH ×2 (10:45→17:00)
[2016-10-08] MEDS: PHENOBARBITAL 30 MG TABLET PO SCH ×2 (10:45→17:00)
[2016-10-08] MEDS: RIFAXIMIN 200 MG TABLET PO SCH ×2 (10:45→14:26)
[2016-10-08] MEDS: BACLOFEN (10 MG) 10 MG TABLET PO SCH ×3 (10:45→17:00)
[2016-10-08] MEDS: SUCRALFATE 1 G/10 ML UDC GT SCH ×4 (10:45→20:57)
[2016-10-08] MEDS: MULTIVITAMIN LIQ 5 ML UDC GT SCH (10:46)
[2016-10-08] MEDS: ASCORBIC ACID 500 MG TABLET GT SCH (10:46)
[2016-10-08 12:00] VITALS: BP 131/81
[2016-10-08 18:00] VITALS: BP 119/68
[2016-10-08 20:00] VITALS: BP 121/78
[2016-10-08] MEDS: HYDROCODONE/APAP 5/325MG 1 EACH TABLET PO PRN (20:58)
[2016-10-09] VITALS: BP 135/85
[2016-10-09] MEDS: IV NS 0.9% 1,000 ML IV PRN ×2 (01:35→17:15)
[2016-10-09] MEDS: HYDROCODONE/APAP 5/325MG 1 EACH TABLET PO PRN ×2 (01:35→21:02)
[2016-10-09] MEDS: ALBUTEROL FS 2.5 MG/3 ML VIAL.NEB NEB SCH ×4 (01:59→19:40)
[2016-10-09] MEDS: IPRATROPIUM NEB FS 0.5 MG/2.5 ML AMPUL.NEB NEB SCH ×4 (01:59→19:40)
[2016-10-09 04:00] VITALS: BP 118/75
[2016-10-09] MEDS: METRONIDAZOLE 500 MG TABLET PO SCH ×3 (05:30→21:01)
[2016-10-09] MEDS: BLOOD SUGAR DIAGNOSTIC 1 EACH STRIP IN SCH ×4 (05:30→23:41)
[2016-10-09] MEDS: LORAZEPAM 1 MG TABLET GT SCH ×4 (05:31→23:41)
[2016-10-09 07:29] LABS: CALCIUM, SERUM 8.6 mg/dL (8.5-10.1); CREATININE 0.5 mg/dL (0.6-1.3); POTASSIUM 3.7 mmol/L (3.5-5.1)
[2016-10-09 08:00] VITALS: BP 126/77
[2016-10-09] MEDS: PANTOPRAZOLE 40 MG VIAL IV SCH (09:15)
[2016-10-09] MEDS: CHOLESTYRAMINE/ASPARTAME 4 G/PKT PACKET PO SCH (09:15)
[2016-10-09] MEDS: MULTIVITAMIN LIQ 5 ML UDC GT SCH (09:15)
[2016-10-09] MEDS: SUCRALFATE 1 G/10 ML UDC GT SCH ×4 (09:15→21:02)
[2016-10-09] MEDS: ASCORBIC ACID 500 MG TABLET GT SCH (09:16)
[2016-10-09] MEDS: PHENOBARBITAL 30 MG TABLET PO SCH ×2 (09:16→17:12)
[2016-10-09] MEDS: BACLOFEN (10 MG) 10 MG TABLET PO SCH ×3 (09:16→17:12)
[2016-10-09] MEDS: FERROUS SULFATE (325 MG) 325 MG/TAB TABLET PO SCH ×2 (09:16→17:12)
[2016-10-09] MEDS: NEOMY SULF/BACITRAC ZN/POLY 15 GM TUBE TP SCH (09:33)
[2016-10-09] MEDS: Z GUARD REMEDY 2 OZ OINT TP SCH ×2 (09:33→17:26)
[2016-10-09] MEDS: FIDAXOMICIN 200 MG TABLET PO SCH ×2 (11:12→17:11)
[2016-10-09 12:00] VITALS: BP 122/78
[2016-10-09 16:00] VITALS: BP 126/79
[2016-10-09] MEDS: INULIN GT PRN (17:15)
[2016-10-09] MEDS: [UNRECOGNIZED DRUG - OTHER] GT PRN (17:15)
[2016-10-09] MEDS: FOS GT PRN (17:15)
[2016-10-09 20:00] VITALS: BP 144/41
[2016-10-10] VITALS (7 sets, daily range): BP systolic 115–143; BP diastolic 65–94
[2016-10-10] MEDS: HYDROCODONE/APAP 5/325MG 1 EACH TABLET PO PRN ×2 (01:22→11:59)
[2016-10-10] MEDS: IV NS 0.9% 1,000 ML IV PRN ×2 (01:22→12:06)
[2016-10-10] MEDS: ALBUTEROL FS 2.5 MG/3 ML VIAL.NEB NEB SCH ×4 (01:24→19:59)
[2016-10-10] MEDS: IPRATROPIUM NEB FS 0.5 MG/2.5 ML AMPUL.NEB NEB SCH ×4 (01:24→19:59)
[2016-10-10] MEDS: LORAZEPAM 1 MG TABLET GT SCH ×3 (06:48→16:51)
[2016-10-10] MEDS: METRONIDAZOLE 500 MG TABLET PO SCH ×3 (06:48→21:23)
[2016-10-10] MEDS: BLOOD SUGAR DIAGNOSTIC 1 EACH STRIP IN SCH ×3 (06:52→16:49)
[2016-10-10] MEDS: INSULIN REGULAR, HUMAN 100 UNIT/ML 3 ML VIAL SQ PRN (07:01)
[2016-10-10 08:04] LABS: CALCIUM, SERUM 8.6 mg/dL (8.5-10.1); CREATININE 0.6 mg/dL (0.6-1.3); POTASSIUM 3.8 mmol/L (3.5-5.1)
[2016-10-10] MEDS: FERROUS SULFATE (325 MG) 325 MG/TAB TABLET PO SCH ×2 (08:39→16:08)
[2016-10-10] MEDS: SUCRALFATE 1 G/10 ML UDC GT SCH ×4 (08:39→21:23)
[2016-10-10] MEDS: PANTOPRAZOLE 40 MG VIAL IV SCH (08:39)
[2016-10-10] MEDS: PHENOBARBITAL 30 MG TABLET PO SCH ×2 (08:39→16:08)
[2016-10-10] MEDS: MULTIVITAMIN LIQ 5 ML UDC GT SCH (08:39)
[2016-10-10] MEDS: ASCORBIC ACID 500 MG TABLET GT SCH (08:39)
[2016-10-10] MEDS: CHOLESTYRAMINE/ASPARTAME 4 G/PKT PACKET PO SCH (08:39)
[2016-10-10] MEDS: Z GUARD REMEDY 2 OZ OINT TP SCH ×2 (08:40→16:09)
[2016-10-10] MEDS: NEOMY SULF/BACITRAC ZN/POLY 15 GM TUBE TP SCH (08:41)
[2016-10-10] MEDS: BACLOFEN (10 MG) 10 MG TABLET PO SCH ×3 (08:41→16:08)
[2016-10-10] MEDS: FIDAXOMICIN 200 MG TABLET PO SCH ×2 (08:51→16:08)
[2016-10-11] VITALS (10 sets, daily range): BP systolic 117–133; BP diastolic 64–91
[2016-10-11] MEDS: BLOOD SUGAR DIAGNOSTIC 1 EACH STRIP IN SCH ×4 (00:54→17:51)
[2016-10-11] MEDS: LORAZEPAM 1 MG TABLET GT SCH ×4 (00:54→17:37)
[2016-10-11] MEDS: ALBUTEROL FS 2.5 MG/3 ML VIAL.NEB NEB SCH ×4 (01:22→19:45)
[2016-10-11] MEDS: IPRATROPIUM NEB FS 0.5 MG/2.5 ML AMPUL.NEB NEB SCH ×4 (01:22→19:45)
[2016-10-11] MEDS: IV NS 0.9% 1,000 ML IV PRN ×2 (04:19→19:09)
[2016-10-11] MEDS: METRONIDAZOLE 500 MG TABLET PO SCH ×3 (05:46→21:33)
[2016-10-11 06:56] LABS: BASOPHILS % (AUTO) 0.4 % (0.0-2.0); DIFF TOTAL % 100 %; EOSINOPHILS # (AUTO) 0.4 /CMM (0.0-0.7); EOSINOPHILS % (AUTO) 4.9 % (0.0-6.0); HEMATOCRIT 33 % (39-51); HEMOGLOBIN 10.6 g/dL (13.5-17.5); LYMPHOCYTES # (AUTO) 2.1 /CMM (0.8-4.8); LYMPHOCYTES % (AUTO) 26.7 % (20.0-44.0); MEAN CORPUSCULAR HEMOGLOBIN 23 PG (26.0-33.0); MEAN CORPUSCULAR HGB CONC 32 g/dl (31.0-36.0); MEAN CORPUSCULAR VOLUME 71 fL (80-96); MONOCYTES # (AUTO) 0.6 /CMM (0.1-1.30); MONOCYTES % (AUTO) 8.2 % (2.0-12.0); NEUTROPHILS # (AUTO) 4.6 /CMM (1.8-8.9); NEUTROPHILS % (AUTO) 59.8 % (43.0-81.0); PLATELET COUNT (AUTO) 253 /CMM (150-450); WHITE BLOOD COUNT (AUTO) 7.7 K/uL (4.3-11.0)
[2016-10-11 07:33] LABS: CALCIUM, SERUM 8.5 mg/dL (8.5-10.1); CREATININE 0.6 mg/dL (0.6-1.3); PHOSPHORUS 3.2 mg/dL (2.5-4.9); POTASSIUM 3.5 mmol/L (3.5-5.1)
[2016-10-11] MEDS: FIDAXOMICIN 200 MG TABLET PO SCH ×2 (09:55→17:38)
[2016-10-11] MEDS: CHOLESTYRAMINE/ASPARTAME 4 G/PKT PACKET PO SCH (09:55)
[2016-10-11] MEDS: BACLOFEN (10 MG) 10 MG TABLET PO SCH ×3 (09:55→17:37)
[2016-10-11 09:56] LABS: BASOPHILS % (MANUAL) 1 % (0.0-2.0); EOSINOPHILS % (MANUAL) 1 % (0-4); LYMPHOCYTES % (MANUAL) 23 % (16-48)
[2016-10-11] MEDS: ASCORBIC ACID 500 MG TABLET GT SCH (09:56)
[2016-10-11] MEDS: MULTIVITAMIN LIQ 5 ML UDC GT SCH (09:56)
[2016-10-11] MEDS: FERROUS SULFATE (325 MG) 325 MG/TAB TABLET PO SCH ×2 (09:56→17:37)
[2016-10-11] MEDS: SUCRALFATE 1 G/10 ML UDC GT SCH ×4 (09:56→21:32)
[2016-10-11] MEDS: PHENOBARBITAL 30 MG TABLET PO SCH ×2 (09:56→17:37)
[2016-10-11] MEDS: PANTOPRAZOLE 40 MG VIAL IV SCH (09:56)
[2016-10-11 09:57] LABS: ANISOCYTOSIS 1+; HYPOCHROMASIA 1+; MICROCYTOSIS 1+; PLATELET ESTIMATE ADEQUATE
[2016-10-11] MEDS: NEOMY SULF/BACITRAC ZN/POLY 15 GM TUBE TP SCH (09:57)
[2016-10-11] MEDS: Z GUARD REMEDY 2 OZ OINT TP SCH ×2 (09:57→17:39)
[2016-10-11] MEDS ORDERED: SECONDARY IV SET 1 EA INFUS.SET MC ONE (12:40)
[2016-10-11] MEDS: Magnesium 1GM/D5W 100ML PREMIX 100 ML IV SCH ×2 (13:19→14:40)
[2016-10-11] MEDS: [UNRECOGNIZED DRUG - OTHER] GT PRN (19:09)
[2016-10-11] MEDS: FOS GT PRN (19:09)
[2016-10-11] MEDS: INULIN GT PRN (19:09)
[2016-10-12] VITALS: BP 136/85
[2016-10-12] MEDS: LORAZEPAM 1 MG TABLET GT SCH ×4 (00:21→17:30)
[2016-10-12] MEDS: BLOOD SUGAR DIAGNOSTIC 1 EACH STRIP IN SCH ×4 (00:21→17:30)
[2016-10-12] MEDS: ALBUTEROL FS 2.5 MG/3 ML VIAL.NEB NEB SCH ×4 (01:29→19:55)
[2016-10-12] MEDS: IPRATROPIUM NEB FS 0.5 MG/2.5 ML AMPUL.NEB NEB SCH ×4 (01:30→19:55)
[2016-10-12 04:00] VITALS: BP 126/85
[2016-10-12] MEDS: METRONIDAZOLE 500 MG TABLET PO SCH ×3 (06:31→20:49)
[2016-10-12] MEDS: IV NS 0.9% 1,000 ML IV PRN ×2 (06:31→17:31)
[2016-10-12 07:46] LABS: CALCIUM, SERUM 8.8 mg/dL (8.5-10.1); CREATININE 0.5 mg/dL (0.6-1.3); POTASSIUM 3.6 mmol/L (3.5-5.1)
[2016-10-12 08:00] VITALS: BP 121/74
[2016-10-12] MEDS: FIDAXOMICIN 200 MG TABLET PO SCH ×2 (09:27→17:29)
[2016-10-12] MEDS: CHOLESTYRAMINE/ASPARTAME 4 G/PKT PACKET PO SCH (09:27)
[2016-10-12] MEDS: BACLOFEN (10 MG) 10 MG TABLET PO SCH ×3 (09:27→17:30)
[2016-10-12] MEDS: RIFAXIMIN 200 MG TABLET PO SCH ×3 (09:27→17:30)
[2016-10-12] MEDS: MULTIVITAMIN LIQ 5 ML UDC GT SCH (09:27)
[2016-10-12] MEDS: FERROUS SULFATE (325 MG) 325 MG/TAB TABLET PO SCH ×2 (09:28→17:30)
[2016-10-12] MEDS: PHENOBARBITAL 30 MG TABLET PO SCH ×2 (09:28→17:30)
[2016-10-12] MEDS: ASCORBIC ACID 500 MG TABLET GT SCH (09:28)
[2016-10-12] MEDS: PANTOPRAZOLE 40 MG VIAL IV SCH (09:28)
[2016-10-12] MEDS: SUCRALFATE 1 G/10 ML UDC GT SCH ×4 (09:31→20:49)
[2016-10-12] MEDS: Z GUARD REMEDY 2 OZ OINT TP SCH ×2 (09:32→17:32)
[2016-10-12] MEDS: NEOMY SULF/BACITRAC ZN/POLY 15 GM TUBE TP SCH (09:33)
[2016-10-12] MEDS: [UNRECOGNIZED DRUG - OTHER] GT PRN (10:36)
[2016-10-12] MEDS: INULIN GT PRN (10:36)
[2016-10-12] MEDS: FOS GT PRN (10:36)
[2016-10-12 12:00] VITALS: BP 139/87
[2016-10-12 16:00] VITALS: BP 132/82
[2016-10-12] MEDS ORDERED: FIDA200T PO (16:57)
[2016-10-12 20:00] VITALS: BP 136/91
== END 2016-10-12 21:32 | DRG 720 ==
LOC: ER 14:31 → TELE1 19:46
PROVIDERS: ADMIT Internal Medicine; ATTEND Internal Medicine
PROC: 5A1955Z Respiratory Ventilation, Greater than 96 Consecutive Hours (ICD-10-PCS; 2016-09-27)
PROC: 02HV33Z Insertion of Infusion Device into Superior Vena Cava, Percutaneous Approach (ICD-10-PCS; principal; 2016-09-28)
PROC: B548ZZA Ultrasonography of Superior Vena Cava, Guidance (ICD-10-PCS; principal; 2016-09-28)
DX: A41.9 Sepsis, unspecified organism (principal); G93.40 Encephalopathy, unspecified; R40.3 Persistent vegetative state; Z99.11 Dependence on respirator [ventilator] status; E43 Unspecified severe protein-calorie malnutrition; J18.9 Pneumonia, unspecified organism; J96.11 Chronic respiratory failure with hypoxia; R53.2 Functional quadriplegia; Z93.0 Tracheostomy status; N39.0 Urinary tract infection, site not specified; R13.10 Dysphagia, unspecified; G40.909 Epilepsy, unspecified, not intractable, without status epilepticus; E78.5 Hyperlipidemia, unspecified; E66.9 Obesity, unspecified; D50.9 Iron deficiency anemia, unspecified; J98.11 Atelectasis; Z87.820 Personal history of traumatic brain injury; B96.20 Unspecified Escherichia coli [E. coli] as the cause of diseases classified elsewhere; B96.5 Pseudomonas (aeruginosa) (mallei) (pseudomallei) as the cause of diseases classified elsewhere; E83.39 Other disorders of phosphorus metabolism; E87.6 Hypokalemia; E83.42 Hypomagnesemia; E87.1 Hypo-osmolality and hyponatremia; R31.9 Hematuria, unspecified; A04.7 Enterocolitis due to Clostridium difficile
CPT/HCPCS: 31720; 36415; 71010-TC; 80048-TC; 80076-TC; 80170-TC; 81000-TC; 82272-TC; 82728-TC; 82962-TC; 83540-TC; 83605-TC; 83735-TC; 84100-TC; 84484-TC; 85025-TC; 85730-TC; 87040-TC; 87081-TC; 87086-TC; 87186-TC; 94002-TC; 94003-TC; 94760-TC; A4606; A6253; A6402; A6403; A7526; C9113; J1580; J1650; J1815; J1956; J2405; J2543; J2560; J3370; J3475; J7030; J7060; Q0163; Q2036; Z7610

== ENCOUNTER 2016-11-05 00:47 | Inpatient (IN) | payer MEDICAID ==
[~2016-11-05] VITALS: Ht 182.9 cm; Wt 115.2 kg
[~2016-11-05 00:47] MED LIST: ACET-2605 GT; ACET100V5 NEB; ALBU2.5V38 NEB; ASCO250T5 GT; ASCO250T6 PO; BACL10TA PO; BISA10SU8 RC; DIGO125T GT; DIPH25CA83 GT; FIDA200T PO; IBUP-1482 GT; INSU100V27 SQ; INSU3INS6 SQ; IPRA0.2S49 NEB; LEVA1.2524 NEB; LORA2TAB GT; LORA2TAB95 GT; METO5SOL2 GT; METO5SOL20 GT; MULT9LIQ6 GT; OMEP20TA68 PO; PHEN64.8 GT; POTA20LI4 GT; SILD20TA2 GT; SUCR1ORA6 GT
[2016-11-05] MEDS ORDERED: ACETAMINOPHEN ES 500 MG TABLET ONE (01:06)
[2016-11-05] MEDS ORDERED: ACETAMINOPHEN 325 MG TABLET PO ONE (01:30)
[2016-11-05] MEDS ORDERED: IV NS 0.9% 3,000 ML ONE (01:39)
[2016-11-05] MEDS ORDERED: IV SET PRIMARY 1 EA INFUS.SET MC ONE ×2 (01:39→02:11)
[2016-11-05] MEDS ORDERED: IV NS 0.9% 500 ML IV ONE ×2 (01:39→17:00)
[2016-11-05 01:43] LABS: KETONES,URINE NEGATIVE (NEGATIVE); LEUKOCYTE ESTERASE ,URINE 3+ (NEGATIVE)
[2016-11-05 01:50] LABS: BASOPHILS % (AUTO) 0.2 % (0.0-2.0); DIFF TOTAL % 100 %; EOSINOPHILS % (AUTO) 0.1 % (0.0-6.0); HEMATOCRIT 35 % (39-51); HEMOGLOBIN 11.1 g/dL (13.5-17.5); LYMPHOCYTES # (AUTO) 1.1 /CMM (0.8-4.8); LYMPHOCYTES % (AUTO) 7.7 % (20.0-44.0); MEAN CORPUSCULAR HEMOGLOBIN 22 PG (26.0-33.0); MEAN CORPUSCULAR HGB CONC 31 g/dl (31.0-36.0); MEAN CORPUSCULAR VOLUME 72 fL (80-96); MONOCYTES # (AUTO) 0.6 /CMM (0.1-1.30); NEUTROPHILS # (AUTO) 13.1 /CMM (1.8-8.9); PLATELET COUNT (AUTO) 244 /CMM (150-450); RED BLOOD CELL COUNT(AUTO) 4.94 MIL/uL (4.5-6.0); WHITE BLOOD COUNT (AUTO) 14.9 K/uL (4.3-11.0)
[2016-11-05 01:52] LABS: ANION GAP 14 (5-14); CALCIUM, SERUM 8.9 mg/dL (8.5-10.1); CARBON DIOXIDE 24 mmol/L (21-32); CHLORIDE 96 mmol/L (98-107); GFR 85 mL/min (>60); GLUCOSE 133 mg/dL (74-106); POTASSIUM 3.7 mmol/L (3.5-5.1); SODIUM SERUM 130 mmol/L (136-145); UREA NITROGEN, BLOOD 33 mg/dL (7-18)
[2016-11-05 01:53] LABS: ADD UA MICROSCOPIC YES
[2016-11-05 01:56] LABS: RBC,URINE TOO NUMEROUS TO COUN /HPF (0-2)
[2016-11-05 01:57] LABS: ADD URINE CULTURE YES; INR 0.98 (0.87-1.13); PROTHROMBIN TIME 10.6 SECS (9.5-12.7); WBC,URINE 21-50 /HPF (0-3)
[2016-11-05 01:58] LABS: ALANINE AMINOTRANSFERASE 47 U/L (12-78); ALBUMIN 2.6 g/dL (3.4-5.0); ASPARTATE AMINOTRANSFERASE 27 U/L (15-37); BILIRUBIN,DIRECT 0.5 mg/dL (0.0-0.2); BILIRUBIN,TOTAL 0.7 mg/dL (0.2-1.0); INDIRECT BILIRUBIN 0.2 mg/dL (0.0-1.1); TOTAL PROTEIN, SERUM 8.9 g/dL (6.4-8.2)
[2016-11-05 02:00] LABS: LACTIC ACID 1.8 mmol/L (0.4-2.0); TROPONIN I < 0.017 ng/mL (0.00-0.056)
[2016-11-05] MEDS ORDERED: IV NS 0.9% 500 ML BAG IV ONE (02:00)
[2016-11-05] MEDS ORDERED: IV NS 0.9% 1,000 ML BAG IV ONE ×3 (02:00)
[2016-11-05 02:05] LABS: LYMPHOCYTES % (MANUAL) 8 % (16-48); PLATELET ESTIMATE ADEQUATE
[2016-11-05 02:06] LABS: HYPOCHROMASIA 1+
[2016-11-05] MEDS ORDERED: CEFTRIAXONE 1GM BAG (ER ONLY) 50 ML IV ONE (02:10)
[2016-11-05 02:30] VITALS: BP 145/79
[2016-11-05] MEDS ORDERED: CEFTRIAXONE 1GM BAG (ER ONLY) 1 GM/50 ML PIGGYBACK IV ONE (02:30)
[2016-11-05] MEDS ORDERED: ACETYLCYSTEINE 10% 3,000 MG/30 ML VIAL IH PRN (02:30)
[2016-11-05] MEDS ORDERED: MAG HYDROX/AL HYDROX/SIMETH 30 ML UDC GT PRN (02:30)
[2016-11-05] MEDS ORDERED: Z GUARD REMEDY 2 OZ OINT TP PRN (02:30)
[2016-11-05] MEDS ORDERED: IV NS 0.9% 1,000 ML IV PRN (02:30)
[2016-11-05] MEDS ORDERED: METOCLOPRAMIDE HCL 10 MG/10 ML UDC GT SCH (02:30)
[2016-11-05] MEDS ORDERED: MAGNESIUM HYDROXIDE 30 ML UDC GT PRN (02:30)
[2016-11-05] MEDS ORDERED: HYDROCODONE/APAP 5/325MG 1 EACH TABLET GT PRN (02:30)
[2016-11-05] MEDS ORDERED: BISACODYL SUPP (10 MG) 10 MG/SUPP.RECT SUPP.RECT RC PRN (02:30)
[2016-11-05] MEDS ORDERED: ACETAMINOPHEN 650 MG/20.3 ML UDC PO PRN (02:30)
[2016-11-05] MEDS ORDERED: diphenhydrAMINE HCL ELIX 25 MG/10 ML UDC GT PRN (02:30)
[2016-11-05] MEDS ORDERED: ONDANSETRON HCL/PF 4 MG/2 ML VIAL IVP PRN (02:30)
[2016-11-05] MEDS ORDERED: IV SET PRIMARY PUMP SET 1 EA INFUS.SET MC ONE ×3 (02:43→15:35)
[2016-11-05] MEDS ORDERED: LORAZEPAM 1 MG TABLET GT SCH ×2 (03:00→09:30)
[2016-11-05] MEDS ORDERED: CEFTRIAXONE 1 G in IV D5W 50 ML IV SCH (03:00)
[2016-11-05] MEDS ORDERED: DEXTROSE 50%-WATER 50 ML DISP.SYRIN IV PRN (03:00)
[2016-11-05] MEDS ORDERED: GABA100C GT ×2 (03:31→03:48)
[2016-11-05] MEDS ORDERED: GABAPENTIN 100 MG CAPSULE ONE (04:03)
[2016-11-05] MEDS: GABAPENTIN 100 MG CAPSULE GT SCH ×4 (04:09→17:11)
[2016-11-05] MEDS ORDERED: GABAPENTIN 100 MG CAPSULE GT SCH (06:00)
[2016-11-05] MEDS: BLOOD SUGAR DIAGNOSTIC 1 EACH STRIP IN SCH ×3 (06:00→17:13)
[2016-11-05] MEDS: IPRATROPIUM NEB FS 0.5 MG/2.5 ML AMPUL.NEB NEB SCH ×4 (07:35→19:29)
[2016-11-05 08:00] VITALS: BP_SYST 109; BP_SYST 166; BP_DIAS 69; BP_DIAS 91
[2016-11-05] MEDS ORDERED: SUCRALFATE 1 G/10 ML UDC GT SCH (09:00)
[2016-11-05] MEDS ORDERED: FIDAXOMICIN 200 MG TABLET PO SCH (09:00)
[2016-11-05] MEDS ORDERED: ACETAMINOPHEN 650 MG/20.3 ML UDC GT PRN (09:11)
[2016-11-05] MEDS: MULTIVITAMIN LIQ 5 ML UDC GT SCH (09:18)
[2016-11-05] MEDS: DIGOXIN 0.125 MG TABLET GT SCH ×2 (09:18→16:26)
[2016-11-05] MEDS: LORAZEPAM 1 MG TABLET GT SCH ×3 (09:19→17:11)
[2016-11-05] MEDS: BACLOFEN (10 MG) 10 MG TABLET GT SCH ×3 (09:19→16:26)
[2016-11-05] MEDS: SILDENAFIL CITRATE 20 MG TABLET GT SCH ×3 (09:19→16:28)
[2016-11-05] MEDS: PHENOBARBITAL 30 MG TABLET GT SCH ×2 (09:20→16:25)
[2016-11-05] MEDS ORDERED: HYDROGEL DRESSING 90 GM TUBE TP PRN (09:30)
[2016-11-05] MEDS ORDERED: IBUPROFEN 400 MG TABLET GT PRN ×2 (09:30)
[2016-11-05] MEDS: POTASSIUM CHLORIDE 20 MEQ POWDER PACKET GT SCH (10:32)
[2016-11-05 12:00] VITALS: BP 116/72
[2016-11-05] MEDS: SUCRALFATE 1 G/10 ML UDC GT SCH ×3 (12:18→21:12)
[2016-11-05] MEDS: HYDROGEL DRESSING 90 GM TUBE TP SCH (12:53)
[2016-11-05] MEDS ORDERED: PIPERACILLIN /TAZOBACTAM 3.375 G in IV D5W 50 ML IV SCH ×2 (13:00→15:00)
[2016-11-05] MEDS ORDERED: LEVALBUTEROL HCL NEB 1.25 MG/0.5 ML VIAL.NEB NEB SCH (13:30)
[2016-11-05] MEDS: ALBUTEROL FS 2.5 MG/0.5 ML VIAL.NEB NEB SCH ×3 (13:30→19:30)
[2016-11-05] MEDS ORDERED: FEE PK DOSING 1 MIN EA MC ONE (13:47)
[2016-11-05] MEDS ORDERED: VANCOMYCIN 1.25 GM in IV D5W 500 ML IV ONE (14:00)
[2016-11-05] MEDS ORDERED: SECONDARY IV SET 1 EA INFUS.SET MC ONE ×2 (14:16→17:50)
[2016-11-05 16:00] VITALS: BP_SYST 179; BP_SYST 99; BP_DIAS 55; BP_DIAS 93
[2016-11-05] MEDS ORDERED: MEROPENEM 500 MG in IV NS 0.9% 50 ML IV SCH (16:00)
[2016-11-05] MEDS: MEROPENEM 500 MG in IV NS 0.9% 50 ML IV SCH (17:52)
[2016-11-05 20:00] VITALS: BP 102/62
[2016-11-05] MEDS: INSULIN DETEMIR 100 UNIT/ML CARTRIDGE SQ SCH (21:09)
[2016-11-05] MEDS: VANCOMYCIN 1 GM in IV D5W 250 ML IV SCH (21:12)
[2016-11-05] MEDS: IV NS 0.9% 1,000 ML IV PRN (22:39)
[2016-11-06] VITALS: BP 121/78
[2016-11-06] MEDS: LORAZEPAM 1 MG TABLET GT SCH ×5 (00:04→22:33)
[2016-11-06] MEDS: GABAPENTIN 100 MG CAPSULE GT SCH ×5 (00:05→22:32)
[2016-11-06] MEDS: IPRATROPIUM NEB FS 0.5 MG/2.5 ML AMPUL.NEB NEB SCH ×4 (01:17→19:46)
[2016-11-06] MEDS: ALBUTEROL FS 2.5 MG/0.5 ML VIAL.NEB NEB SCH ×4 (01:18→19:45)
[2016-11-06 04:00] VITALS: BP 137/80
[2016-11-06] MEDS: VANCOMYCIN 1 GM in IV D5W 250 ML IV SCH ×3 (05:39→21:21)
[2016-11-06] MEDS: MEROPENEM 500 MG in IV NS 0.9% 50 ML IV SCH ×2 (05:39→17:36)
[2016-11-06] MEDS: BLOOD SUGAR DIAGNOSTIC 1 EACH STRIP IN SCH ×5 (06:06→23:51)
[2016-11-06 06:32] LABS: BASOPHILS % (AUTO) 0.1 % (0.0-2.0); DIFF TOTAL % 100 %; EOSINOPHILS # (AUTO) 0.1 /CMM (0.0-0.7); EOSINOPHILS % (AUTO) 0.7 % (0.0-6.0); HEMATOCRIT 32 % (39-51); HEMOGLOBIN 9.9 g/dL (13.5-17.5); LYMPHOCYTES # (AUTO) 0.8 /CMM (0.8-4.8); MEAN CORPUSCULAR HEMOGLOBIN 22 PG (26.0-33.0); MEAN CORPUSCULAR HGB CONC 31 g/dl (31.0-36.0); MEAN CORPUSCULAR VOLUME 71 fL (80-96); MONOCYTES % (AUTO) 8.3 % (2.0-12.0); NEUTROPHILS # (AUTO) 10.1 /CMM (1.8-8.9); NEUTROPHILS % (AUTO) 83.9 % (43.0-81.0); PLATELET COUNT (AUTO) 187 /CMM (150-450); RED BLOOD CELL COUNT(AUTO) 4.47 MIL/uL (4.5-6.0); WHITE BLOOD COUNT (AUTO) 12.1 K/uL (4.3-11.0)
[2016-11-06 06:41] LABS: IRON, SERUM 18 ug/dl (50-175); PERCENT SATURATION 9 % (14-33); TOTAL IRON BINDING CAPACITY 204 ug/dl (250-450)
[2016-11-06 06:47] LABS: ALANINE AMINOTRANSFERASE 39 U/L (12-78); ALBUMIN 2.3 g/dL (3.4-5.0); ANION GAP 13 (5-14); ASPARTATE AMINOTRANSFERASE 24 U/L (15-37); BILIRUBIN,TOTAL 0.9 mg/dL (0.2-1.0); CALCIUM, SERUM 8.6 mg/dL (8.5-10.1); CARBON DIOXIDE 20 mmol/L (21-32); CHLORIDE 103 mmol/L (98-107); CREATININE 0.9 mg/dL (0.6-1.3); GFR 96 mL/min (>60); GLUCOSE 113 mg/dL (74-106); PHOSPHORUS 3.6 mg/dL (2.5-4.9); POTASSIUM 3.2 mmol/L (3.5-5.1); SODIUM SERUM 133 mmol/L (136-145); UREA NITROGEN, BLOOD 24 mg/dL (7-18)
[2016-11-06 06:53] LABS: CHOLESTEROL 75 mg/dL (<200); LDL 38 mg/dL (0-99); THYROID STIMULATING HORMONE 1.809 uIU/mL (0.358-3.74); TRIGLYCERIDES 150 mg/dL (30-150)
[2016-11-06 06:58] LABS: HDL CHOLESTEROL < 10 mg/dL (40-60)
[2016-11-06 08:00] VITALS: BP 120/79
[2016-11-06] MEDS: SUCRALFATE 1 G/10 ML UDC GT SCH ×4 (08:01→21:09)
[2016-11-06] MEDS: MULTIVITAMIN LIQ 5 ML UDC GT SCH (08:01)
[2016-11-06] MEDS: PANTOPRAZOLE 40 MG TABLET.DR PO SCH (08:01)
[2016-11-06] MEDS: FIDAXOMICIN 200 MG TABLET PO SCH ×2 (08:01→17:36)
[2016-11-06] MEDS: DIGOXIN 0.125 MG TABLET GT SCH ×2 (08:01→17:37)
[2016-11-06] MEDS: PHENOBARBITAL 30 MG TABLET GT SCH ×2 (08:01→17:37)
[2016-11-06] MEDS: BACLOFEN (10 MG) 10 MG TABLET GT SCH ×3 (08:01→17:37)
[2016-11-06] MEDS: HYDROGEL DRESSING 90 GM TUBE TP SCH (08:02)
[2016-11-06] MEDS: SILDENAFIL CITRATE 20 MG TABLET GT SCH ×3 (08:02→17:00)
[2016-11-06] MEDS: ASCORBIC ACID 500 MG TABLET GT SCH (08:02)
[2016-11-06] MEDS: POTASSIUM CHLORIDE 20 MEQ POWDER PACKET GT SCH ×2 (08:02→12:45)
[2016-11-06] MEDS ORDERED: SECONDARY IV SET 1 EA INFUS.SET MC ONE ×2 (10:31→11:45)
[2016-11-06] MEDS: IV NS 0.9% 1,000 ML IV PRN (10:39)
[2016-11-06] MEDS: Magnesium 1GM/D5W 100ML PREMIX 100 ML IV SCH ×6 (10:41→16:18)
[2016-11-06] MEDS: POTASSIUM CL. PREMIX PERIPHER. 50 ML IV SCH ×6 (11:51→17:35)
[2016-11-06] MEDS ORDERED: IV SET PRIMARY PUMP SET 1 EA INFUS.SET MC ONE (11:58)
[2016-11-06 12:00] VITALS: BP 112/74
[2016-11-06] MEDS: GLYTROL 1,000 ML BAG GT PRN (14:01)
[2016-11-06] MEDS ORDERED: IV D5/ 0.9% NACL 1,000 ML IV ONE (15:00)
[2016-11-06 16:00] VITALS: BP 109/64
[2016-11-06] MEDS ORDERED: IV NS 0.9% 1,000 ML BAG IV PRN (17:00)
[2016-11-06] MEDS ORDERED: IV NS 0.9% 1,000 ML IV PRN (17:30)
[2016-11-06] MEDS: FERROUS SULFATE UDC 300 MG/5 ML UDC GT SCH (17:36)
[2016-11-06 20:00] VITALS: BP 123/74
[2016-11-06] MEDS: INSULIN DETEMIR 100 UNIT/ML CARTRIDGE SQ SCH (21:17)
[2016-11-06] MEDS: INSULIN REGULAR, HUMAN 100 UNIT/ML 3 ML VIAL SQ PRN (23:54)
[2016-11-07] VITALS: BP 118/74
[2016-11-07] MEDS: IPRATROPIUM NEB FS 0.5 MG/2.5 ML AMPUL.NEB NEB SCH ×4 (01:04→19:58)
[2016-11-07] MEDS: ALBUTEROL FS 2.5 MG/0.5 ML VIAL.NEB NEB SCH ×4 (01:04→19:57)
[2016-11-07] MEDS: VANCOMYCIN 1 GM in IV D5W 250 ML IV SCH ×3 (03:52→21:11)
[2016-11-07 04:00] VITALS: BP 116/78
[2016-11-07] MEDS: MEROPENEM 500 MG in IV NS 0.9% 50 ML IV SCH ×2 (04:46→16:39)
[2016-11-07] MEDS: GABAPENTIN 100 MG CAPSULE GT SCH ×4 (05:20→23:44)
[2016-11-07] MEDS: LORAZEPAM 1 MG TABLET GT SCH ×4 (05:20→23:45)
[2016-11-07] MEDS: BLOOD SUGAR DIAGNOSTIC 1 EACH STRIP IN SCH ×4 (05:20→23:48)
[2016-11-07] MEDS: INSULIN REGULAR, HUMAN 100 UNIT/ML 3 ML VIAL SQ PRN (05:25)
[2016-11-07 08:00] VITALS: BP 120/86
[2016-11-07] MEDS: FERROUS SULFATE UDC 300 MG/5 ML UDC GT SCH ×3 (08:48→18:00)
[2016-11-07] MEDS: SILDENAFIL CITRATE 20 MG TABLET GT SCH ×3 (08:49→16:31)
[2016-11-07] MEDS: ASCORBIC ACID 500 MG TABLET GT SCH (08:49)
[2016-11-07] MEDS: POTASSIUM CHLORIDE 20 MEQ POWDER PACKET GT SCH (08:49)
[2016-11-07] MEDS: PHENOBARBITAL 30 MG TABLET GT SCH ×2 (08:49→16:40)
[2016-11-07] MEDS: BACLOFEN (10 MG) 10 MG TABLET GT SCH ×3 (08:49→16:36)
[2016-11-07] MEDS: MULTIVITAMIN LIQ 5 ML UDC GT SCH (08:49)
[2016-11-07] MEDS: DIGOXIN 0.125 MG TABLET GT SCH ×2 (08:50→16:31)
[2016-11-07] MEDS: PANTOPRAZOLE 40 MG TABLET.DR PO SCH (08:50)
[2016-11-07] MEDS: SUCRALFATE 1 G/10 ML UDC GT SCH ×4 (08:55→22:23)
[2016-11-07] MEDS: FIDAXOMICIN 200 MG TABLET PO SCH ×2 (08:57→16:47)
[2016-11-07] MEDS: HYDROGEL DRESSING 90 GM TUBE TP SCH (08:57)
[2016-11-07 11:51] LABS: CALCIUM, SERUM 8.7 mg/dL (8.5-10.1); CREATININE 0.7 mg/dL (0.6-1.3); PHOSPHORUS 3.8 mg/dL (2.5-4.9); POTASSIUM 4.8 mmol/L (3.5-5.1)
[2016-11-07 12:00] VITALS: BP 119/86
[2016-11-07 16:00] VITALS: BP 124/77
[2016-11-07] MEDS: GLYTROL 1,000 ML BAG GT PRN (19:45)
[2016-11-07] MEDS: IV NS 0.9% 1,000 ML IV PRN (19:46)
[2016-11-07 20:00] VITALS: BP 123/74
[2016-11-07] MEDS: INSULIN DETEMIR 100 UNIT/ML CARTRIDGE SQ SCH (21:15)
[2016-11-08] VITALS (7 sets, daily range): BP systolic 107–144; BP diastolic 58–93
[2016-11-08] MEDS: ALBUTEROL FS 2.5 MG/0.5 ML VIAL.NEB NEB SCH ×2 (01:36→07:14)
[2016-11-08] MEDS: IPRATROPIUM NEB FS 0.5 MG/2.5 ML AMPUL.NEB NEB SCH ×4 (01:36→19:35)
[2016-11-08] MEDS: VANCOMYCIN 1 GM in IV D5W 250 ML IV SCH ×2 (04:47→13:00)
[2016-11-08] MEDS: MEROPENEM 500 MG in IV NS 0.9% 50 ML IV SCH ×2 (05:55→17:33)
[2016-11-08] MEDS: GABAPENTIN 100 MG CAPSULE GT SCH ×3 (05:58→17:27)
[2016-11-08] MEDS: LORAZEPAM 1 MG TABLET GT SCH ×3 (05:58→17:27)
[2016-11-08] MEDS: BLOOD SUGAR DIAGNOSTIC 1 EACH STRIP IN SCH ×3 (06:02→17:34)
[2016-11-08] MEDS: INSULIN REGULAR, HUMAN 100 UNIT/ML 3 ML VIAL SQ PRN (06:23)
[2016-11-08 07:25] LABS: BASOPHILS % (AUTO) 0.2 % (0.0-2.0); DIFF TOTAL % 100 %; EOSINOPHILS # (AUTO) 0.1 /CMM (0.0-0.7); HEMATOCRIT 31 % (39-51); HEMOGLOBIN 10.1 g/dL (13.5-17.5); LYMPHOCYTES # (AUTO) 0.9 /CMM (0.8-4.8); LYMPHOCYTES % (AUTO) 7.9 % (20.0-44.0); MEAN CORPUSCULAR HEMOGLOBIN 23 PG (26.0-33.0); MEAN CORPUSCULAR HGB CONC 32 g/dl (31.0-36.0); MEAN CORPUSCULAR VOLUME 71 fL (80-96); MONOCYTES # (AUTO) 0.8 /CMM (0.1-1.30); NEUTROPHILS # (AUTO) 9.7 /CMM (1.8-8.9); NEUTROPHILS % (AUTO) 83.9 % (43.0-81.0); PLATELET COUNT (AUTO) 211 /CMM (150-450); RED BLOOD CELL COUNT(AUTO) 4.45 MIL/uL (4.5-6.0); WHITE BLOOD COUNT (AUTO) 11.6 K/uL (4.3-11.0)
[2016-11-08 07:43] LABS: CALCIUM, SERUM 8.7 mg/dL (8.5-10.1); CREATININE 0.7 mg/dL (0.6-1.3); POTASSIUM 3.5 mmol/L (3.5-5.1)
[2016-11-08] MEDS: MULTIVITAMIN LIQ 5 ML UDC GT SCH (08:09)
[2016-11-08] MEDS: SILDENAFIL CITRATE 20 MG TABLET GT SCH ×3 (08:09→17:27)
[2016-11-08] MEDS: PHENOBARBITAL 30 MG TABLET GT SCH ×2 (08:09→17:27)
[2016-11-08] MEDS: POTASSIUM CHLORIDE 20 MEQ POWDER PACKET GT SCH (08:09)
[2016-11-08] MEDS: BACLOFEN (10 MG) 10 MG TABLET GT SCH ×3 (08:09→17:27)
[2016-11-08] MEDS: PANTOPRAZOLE 40 MG TABLET.DR PO SCH (08:09)
[2016-11-08] MEDS: FERROUS SULFATE UDC 300 MG/5 ML UDC GT SCH ×3 (08:09→17:26)
[2016-11-08] MEDS: ASCORBIC ACID 500 MG TABLET GT SCH (08:10)
[2016-11-08] MEDS: DIGOXIN 0.125 MG TABLET GT SCH ×2 (08:10→17:27)
[2016-11-08] MEDS: HYDROGEL DRESSING 90 GM TUBE TP SCH (08:12)
[2016-11-08] MEDS: SUCRALFATE 1 G/10 ML UDC GT SCH ×4 (08:15→21:11)
[2016-11-08 09:31] LABS: BAND % (MANUAL) 2 % (0.0-5.0); EOSINOPHILS % (MANUAL) 1 % (0-4); LYMPHOCYTES % (MANUAL) 10 % (16-48); PLATELET ESTIMATE ADEQUATE
[2016-11-08 09:32] LABS: ANISOCYTOSIS 2+; MICROCYTOSIS 2+
[2016-11-08 09:33] LABS: HYPOCHROMASIA 1+
[2016-11-08] MEDS: FIDAXOMICIN 200 MG TABLET PO SCH ×2 (10:20→17:28)
[2016-11-08] MEDS ORDERED: FLU VACC QS 2016-17(36MOS+)/PF 0.5 ML DISP.SYRIN IM ONE (13:00)
[2016-11-08] MEDS: IV NS 0.9% 1,000 ML IV PRN (13:05)
[2016-11-08] MEDS: ALBUTEROL FS 2.5 MG/3 ML VIAL.NEB NEB SCH ×2 (14:07→19:35)
[2016-11-08] MEDS: METRONIDAZOLE 500 MG TABLET PO SCH (21:09)
[2016-11-08] MEDS: INSULIN DETEMIR 100 UNIT/ML CARTRIDGE SQ SCH (21:19)
[2016-11-09] VITALS: BP 131/91
[2016-11-09] MEDS: GABAPENTIN 100 MG CAPSULE GT SCH ×5 (00:45→23:36)
[2016-11-09] MEDS: LORAZEPAM 1 MG TABLET GT SCH ×5 (00:46→23:36)
[2016-11-09] MEDS: BLOOD SUGAR DIAGNOSTIC 1 EACH STRIP IN SCH ×5 (00:50→23:36)
[2016-11-09] MEDS: IV NS 0.9% 1,000 ML IV PRN ×2 (00:54→12:53)
[2016-11-09] MEDS: ALBUTEROL FS 2.5 MG/3 ML VIAL.NEB NEB SCH ×4 (00:55→19:13)
[2016-11-09] MEDS: IPRATROPIUM NEB FS 0.5 MG/2.5 ML AMPUL.NEB NEB SCH ×4 (00:55→19:13)
[2016-11-09] MEDS: GLYTROL 1,000 ML BAG GT PRN (00:58)
[2016-11-09 04:00] VITALS: BP_SYST 131; BP_DIAS 79; BP_DIAS 91
[2016-11-09] MEDS: METRONIDAZOLE 500 MG TABLET PO SCH ×3 (05:47→20:58)
[2016-11-09] MEDS: MEROPENEM 500 MG in IV NS 0.9% 50 ML IV SCH (05:47)
[2016-11-09 06:42] LABS: DIFF TOTAL % 100 %; EOSINOPHILS # (AUTO) 0.1 /CMM (0.0-0.7); EOSINOPHILS % (AUTO) 1.2 % (0.0-6.0); HEMATOCRIT 32 % (39-51); HEMOGLOBIN 10.1 g/dL (13.5-17.5); LYMPHOCYTES # (AUTO) 1.1 /CMM (0.8-4.8); LYMPHOCYTES % (AUTO) 9.2 % (20.0-44.0); MEAN CORPUSCULAR HEMOGLOBIN 23 PG (26.0-33.0); MEAN CORPUSCULAR HGB CONC 32 g/dl (31.0-36.0); MEAN CORPUSCULAR VOLUME 71 fL (80-96); MONOCYTES # (AUTO) 0.7 /CMM (0.1-1.30); MONOCYTES % (AUTO) 5.9 % (2.0-12.0); NEUTROPHILS # (AUTO) 9.7 /CMM (1.8-8.9); NEUTROPHILS % (AUTO) 83.7 % (43.0-81.0); PLATELET COUNT (AUTO) 213 /CMM (150-450); RED BLOOD CELL COUNT(AUTO) 4.52 MIL/uL (4.5-6.0); WHITE BLOOD COUNT (AUTO) 11.5 K/uL (4.3-11.0)
[2016-11-09 06:58] LABS: CALCIUM, SERUM 8.4 mg/dL (8.5-10.1); CREATININE 0.5 mg/dL (0.6-1.3); POTASSIUM 3.8 mmol/L (3.5-5.1)
[2016-11-09 08:00] VITALS: BP 130/85
[2016-11-09] MEDS: MULTIVITAMIN LIQ 5 ML UDC GT SCH (08:09)
[2016-11-09] MEDS: ACIDOPHILUS/BULGARICUS 1 EACH TAB.CHEW PO SCH ×3 (08:10→16:47)
[2016-11-09] MEDS: POTASSIUM CHLORIDE 20 MEQ POWDER PACKET GT SCH (08:10)
[2016-11-09] MEDS: ASCORBIC ACID 500 MG TABLET GT SCH (08:10)
[2016-11-09] MEDS: BACLOFEN (10 MG) 10 MG TABLET GT SCH ×3 (08:10→16:49)
[2016-11-09] MEDS: FERROUS SULFATE UDC 300 MG/5 ML UDC GT SCH ×3 (08:10→17:21)
[2016-11-09] MEDS: PANTOPRAZOLE 40 MG TABLET.DR PO SCH (08:11)
[2016-11-09] MEDS: PHENOBARBITAL 30 MG TABLET GT SCH ×2 (08:11→16:48)
[2016-11-09] MEDS: SILDENAFIL CITRATE 20 MG TABLET GT SCH ×3 (08:11→16:49)
[2016-11-09] MEDS: DIGOXIN 0.125 MG TABLET GT SCH ×2 (08:11→16:48)
[2016-11-09] MEDS: HYDROGEL DRESSING 90 GM TUBE TP SCH (08:13)
[2016-11-09] MEDS: SUCRALFATE 1 G/10 ML UDC GT SCH ×4 (08:13→20:58)
[2016-11-09] MEDS ORDERED: VANCOMYCIN 1 GM in IV D5W 250 ML IV SCH (09:00)
[2016-11-09 12:00] VITALS: BP 114/62
[2016-11-09] MEDS: MEROPENEM 1 G in IV NS 0.9% 100 ML IV SCH ×2 (12:53→21:01)
[2016-11-09 16:00] VITALS: BP 119/73
[2016-11-09] MEDS ORDERED: GLYTROL 1,000 ML BAG GT PRN (19:00)
[2016-11-09 20:00] VITALS: BP_SYST 136; BP_SYST 139; BP_DIAS 64; BP_DIAS 91
[2016-11-09] MEDS: INSULIN DETEMIR 100 UNIT/ML CARTRIDGE SQ SCH (21:00)
[2016-11-10] VITALS: BP 130/88
[2016-11-10] MEDS: IPRATROPIUM NEB FS 0.5 MG/2.5 ML AMPUL.NEB NEB SCH ×5 (01:01→19:39)
[2016-11-10] MEDS: ALBUTEROL FS 2.5 MG/3 ML VIAL.NEB NEB SCH ×5 (01:01→19:39)
[2016-11-10 04:00] VITALS: BP 147/95
[2016-11-10] MEDS: IV NS 0.9% 1,000 ML IV PRN ×2 (04:57→20:41)
[2016-11-10] MEDS: GABAPENTIN 100 MG CAPSULE GT SCH ×4 (05:23→23:17)
[2016-11-10] MEDS: METRONIDAZOLE 500 MG TABLET PO SCH ×3 (05:24→20:42)
[2016-11-10] MEDS: LORAZEPAM 1 MG TABLET GT SCH ×4 (05:25→23:18)
[2016-11-10] MEDS: MEROPENEM 1 G in IV NS 0.9% 100 ML IV SCH ×3 (05:30→20:42)
[2016-11-10] MEDS: BLOOD SUGAR DIAGNOSTIC 1 EACH STRIP IN SCH ×4 (05:39→23:18)
[2016-11-10 06:48] LABS: CALCIUM, SERUM 8.5 mg/dL (8.5-10.1); CREATININE 0.6 mg/dL (0.6-1.3); POTASSIUM 3.8 mmol/L (3.5-5.1)
[2016-11-10 07:03] LABS: BASOPHILS % (AUTO) 0.1 % (0.0-2.0); DIFF TOTAL % 100 %; EOSINOPHILS # (AUTO) 0.1 /CMM (0.0-0.7); EOSINOPHILS % (AUTO) 1.2 % (0.0-6.0); HEMATOCRIT 32 % (39-51); HEMOGLOBIN 10.1 g/dL (13.5-17.5); LYMPHOCYTES % (AUTO) 8.6 % (20.0-44.0); MEAN CORPUSCULAR HEMOGLOBIN 22 PG (26.0-33.0); MEAN CORPUSCULAR HGB CONC 32 g/dl (31.0-36.0); MEAN CORPUSCULAR VOLUME 71 fL (80-96); MONOCYTES # (AUTO) 0.4 /CMM (0.1-1.30); NEUTROPHILS # (AUTO) 9.6 /CMM (1.8-8.9); NEUTROPHILS % (AUTO) 86.1 % (43.0-81.0); PLATELET COUNT (AUTO) 244 /CMM (150-450); RED BLOOD CELL COUNT(AUTO) 4.53 MIL/uL (4.5-6.0); WHITE BLOOD COUNT (AUTO) 11.1 K/uL (4.3-11.0)
[2016-11-10 08:00] VITALS: BP 145/95
[2016-11-10] MEDS: DIGOXIN 0.125 MG TABLET GT SCH ×2 (08:18→17:13)
[2016-11-10] MEDS: SUCRALFATE 1 G/10 ML UDC GT SCH ×4 (08:18→20:42)
[2016-11-10] MEDS: BACLOFEN (10 MG) 10 MG TABLET GT SCH ×3 (08:18→17:13)
[2016-11-10] MEDS: POTASSIUM CHLORIDE 20 MEQ POWDER PACKET GT SCH (08:19)
[2016-11-10] MEDS: FERROUS SULFATE UDC 300 MG/5 ML UDC GT SCH ×3 (08:19→17:13)
[2016-11-10] MEDS: PANTOPRAZOLE 40 MG TABLET.DR PO SCH (08:19)
[2016-11-10] MEDS: PHENOBARBITAL 30 MG TABLET GT SCH ×2 (08:19→17:14)
[2016-11-10] MEDS: SILDENAFIL CITRATE 20 MG TABLET GT SCH ×3 (08:19→17:13)
[2016-11-10] MEDS: MULTIVITAMIN LIQ 5 ML UDC GT SCH (08:19)
[2016-11-10] MEDS: ASCORBIC ACID 500 MG TABLET GT SCH (08:19)
[2016-11-10] MEDS: ACIDOPHILUS/BULGARICUS 1 EACH TAB.CHEW PO SCH ×3 (08:19→17:14)
[2016-11-10] MEDS: HYDROGEL DRESSING 90 GM TUBE TP SCH (08:20)
[2016-11-10] MEDS ORDERED: PROSTAT (PYXIS) 30 ML UDC GT SCH ×2 (09:00)
[2016-11-10] MEDS: PROSOURCE / PROSTAT (PYXIS) 30 ML UDC GT SCH (09:10)
[2016-11-10] MEDS ORDERED: SECONDARY IV SET 1 EA INFUS.SET MC ONE ×3 (09:43→20:31)
[2016-11-10 12:00] VITALS: BP 142/102
[2016-11-10 16:00] VITALS: BP 133/90
[2016-11-10] MEDS ORDERED: FUROSEMIDE 20 MG/2 ML VIAL IV ONE (17:00)
[2016-11-10] MEDS ORDERED: ALBUMIN 25% 25 GM in PREMIX 1 EA IV ONE (17:00)
[2016-11-10] MEDS: GLYTROL 1,000 ML BAG GT PRN (17:50)
[2016-11-10 20:00] VITALS: BP 126/84
[2016-11-10] MEDS ORDERED: IV SET PRIMARY PUMP SET 1 EA INFUS.SET MC ONE (20:31)
[2016-11-10] MEDS: INSULIN DETEMIR 100 UNIT/ML CARTRIDGE SQ SCH (21:05)
[2016-11-11] VITALS: BP 107/65
[2016-11-11] MEDS: IPRATROPIUM NEB FS 0.5 MG/2.5 ML AMPUL.NEB NEB SCH ×4 (02:13→19:58)
[2016-11-11] MEDS: ALBUTEROL FS 2.5 MG/3 ML VIAL.NEB NEB SCH ×4 (02:14→19:45)
[2016-11-11 04:00] VITALS: BP 132/93
[2016-11-11] MEDS: GABAPENTIN 100 MG CAPSULE GT SCH ×3 (05:20→17:00)
[2016-11-11] MEDS: LORAZEPAM 1 MG TABLET GT SCH ×3 (05:20→17:07)
[2016-11-11] MEDS: MEROPENEM 1 G in IV NS 0.9% 100 ML IV SCH ×3 (05:20→21:48)
[2016-11-11] MEDS: METRONIDAZOLE 500 MG TABLET PO SCH ×3 (05:20→21:48)
[2016-11-11] MEDS: INSULIN REGULAR, HUMAN 100 UNIT/ML 3 ML VIAL SQ PRN (05:28)
[2016-11-11] MEDS: BLOOD SUGAR DIAGNOSTIC 1 EACH STRIP IN SCH ×3 (05:38→17:56)
[2016-11-11] MEDS: GLYTROL 1,000 ML BAG GT PRN ×2 (05:39→19:07)
[2016-11-11 06:36] LABS: DIFF TOTAL % 100 %; EOSINOPHILS # (AUTO) 0.1 /CMM (0.0-0.7); EOSINOPHILS % (AUTO) 1.1 % (0.0-6.0); HEMATOCRIT 32 % (39-51); HEMOGLOBIN 10.1 g/dL (13.5-17.5); LYMPHOCYTES # (AUTO) 0.9 /CMM (0.8-4.8); LYMPHOCYTES % (AUTO) 8.9 % (20.0-44.0); MEAN CORPUSCULAR HEMOGLOBIN 22 PG (26.0-33.0); MEAN CORPUSCULAR HGB CONC 32 g/dl (31.0-36.0); MEAN CORPUSCULAR VOLUME 71 fL (80-96); MONOCYTES # (AUTO) 0.5 /CMM (0.1-1.30); MONOCYTES % (AUTO) 4.6 % (2.0-12.0); NEUTROPHILS # (AUTO) 8.8 /CMM (1.8-8.9); NEUTROPHILS % (AUTO) 85.4 % (43.0-81.0); PLATELET COUNT (AUTO) 259 /CMM (150-450); RED BLOOD CELL COUNT(AUTO) 4.53 MIL/uL (4.5-6.0); WHITE BLOOD COUNT (AUTO) 10.3 K/uL (4.3-11.0)
[2016-11-11 06:47] LABS: CALCIUM, SERUM 8.6 mg/dL (8.5-10.1); CREATININE 0.5 mg/dL (0.6-1.3)
[2016-11-11 08:00] VITALS: BP 120/86
[2016-11-11] MEDS: FERROUS SULFATE UDC 300 MG/5 ML UDC GT SCH ×3 (08:35→17:00)
[2016-11-11] MEDS: MULTIVITAMIN LIQ 5 ML UDC GT SCH (08:35)
[2016-11-11] MEDS: ACIDOPHILUS/BULGARICUS 1 EACH TAB.CHEW PO SCH ×3 (08:36→16:57)
[2016-11-11] MEDS: POTASSIUM CHLORIDE 20 MEQ POWDER PACKET GT SCH (08:36)
[2016-11-11] MEDS: ASCORBIC ACID 500 MG TABLET GT SCH (08:37)
[2016-11-11] MEDS: BACLOFEN (10 MG) 10 MG TABLET GT SCH ×3 (08:38→16:57)
[2016-11-11] MEDS: SILDENAFIL CITRATE 20 MG TABLET GT SCH ×3 (08:39→17:01)
[2016-11-11] MEDS: PHENOBARBITAL 30 MG TABLET GT SCH ×2 (08:39→16:57)
[2016-11-11] MEDS: DIGOXIN 0.125 MG TABLET GT SCH ×2 (08:40→16:58)
[2016-11-11] MEDS: SUCRALFATE 1 G/10 ML UDC GT SCH ×4 (08:54→21:48)
[2016-11-11] MEDS: PROSOURCE / PROSTAT (PYXIS) 30 ML UDC GT SCH (09:01)
[2016-11-11] MEDS: PANTOPRAZOLE 40 MG/PACK PACK GT SCH (09:04)
[2016-11-11] MEDS: HYDROGEL DRESSING 90 GM TUBE TP SCH (09:06)
[2016-11-11 11:30] LABS: *SPE ALBUMIN 2.5 g/dL (2.9-4.4)
[2016-11-11 12:00] VITALS: BP 107/61
[2016-11-11] MEDS: IV NS 0.9% 1,000 ML IV PRN (12:14)
[2016-11-11] MEDS ORDERED: FUROSEMIDE 20 MG/2 ML VIAL IV ONE (14:00)
[2016-11-11 16:00] VITALS: BP 114/78
[2016-11-11 19:10] LABS: ANISOCYTOSIS 1+; BURR CELLS 1+; EOSINOPHILS % (MANUAL) 4 % (0-4); LYMPHOCYTES % (MANUAL) 14 % (16-48); PLATELET ESTIMATE ADEQUATE; POIKILOCYTOSIS 1+
[2016-11-11 20:00] VITALS: BP 122/78
[2016-11-11] MEDS: INSULIN DETEMIR 100 UNIT/ML CARTRIDGE SQ SCH (21:56)
[2016-11-11] MEDS ORDERED: SECONDARY IV SET 1 EA INFUS.SET MC ONE (22:00)
[2016-11-12] VITALS: BP 114/65
[2016-11-12] MEDS: BLOOD SUGAR DIAGNOSTIC 1 EACH STRIP IN SCH ×5 (00:32→23:39)
[2016-11-12] MEDS: LORAZEPAM 1 MG TABLET GT SCH ×5 (00:32→23:40)
[2016-11-12] MEDS: GABAPENTIN 100 MG CAPSULE GT SCH ×5 (00:32→23:40)
[2016-11-12] MEDS: ALBUTEROL FS 2.5 MG/3 ML VIAL.NEB NEB SCH ×4 (01:12→19:35)
[2016-11-12] MEDS: IPRATROPIUM NEB FS 0.5 MG/2.5 ML AMPUL.NEB NEB SCH ×4 (01:12→19:35)
[2016-11-12 04:00] VITALS: BP 110/78
[2016-11-12] MEDS ORDERED: IV SET PRIMARY PUMP SET 1 EA INFUS.SET MC ONE (04:49)
[2016-11-12] MEDS: METRONIDAZOLE 500 MG TABLET PO SCH ×3 (05:41→20:52)
[2016-11-12] MEDS: MEROPENEM 1 G in IV NS 0.9% 100 ML IV SCH ×3 (05:42→20:52)
[2016-11-12] MEDS: IV NS 0.9% 1,000 ML IV PRN ×2 (05:42→20:51)
[2016-11-12 07:24] LABS: CALCIUM, SERUM 8.7 mg/dL (8.5-10.1); CREATININE 0.6 mg/dL (0.6-1.3); POTASSIUM 4.3 mmol/L (3.5-5.1)
[2016-11-12 08:00] VITALS: BP 128/76
[2016-11-12] MEDS: FERROUS SULFATE UDC 300 MG/5 ML UDC GT SCH ×3 (08:28→17:34)
[2016-11-12] MEDS: ASCORBIC ACID 500 MG TABLET GT SCH (08:29)
[2016-11-12] MEDS: SUCRALFATE 1 G/10 ML UDC GT SCH ×4 (08:29→20:52)
[2016-11-12] MEDS: MULTIVITAMIN LIQ 5 ML UDC GT SCH (08:35)
[2016-11-12] MEDS: DIGOXIN 0.125 MG TABLET GT SCH ×2 (08:35→17:32)
[2016-11-12] MEDS: POTASSIUM CHLORIDE 20 MEQ POWDER PACKET GT SCH (08:35)
[2016-11-12] MEDS: ACIDOPHILUS/BULGARICUS 1 EACH TAB.CHEW PO SCH ×3 (08:35→17:34)
[2016-11-12] MEDS: BACLOFEN (10 MG) 10 MG TABLET GT SCH ×3 (08:35→17:33)
[2016-11-12] MEDS: PANTOPRAZOLE 40 MG/PACK PACK GT SCH (08:36)
[2016-11-12] MEDS: PHENOBARBITAL 30 MG TABLET GT SCH ×2 (08:36→17:33)
[2016-11-12] MEDS: PROSOURCE / PROSTAT (PYXIS) 30 ML UDC GT SCH (08:36)
[2016-11-12] MEDS: SILDENAFIL CITRATE 20 MG TABLET GT SCH ×3 (08:40→17:33)
[2016-11-12] MEDS: HYDROGEL DRESSING 90 GM TUBE TP SCH (08:42)
[2016-11-12 12:00] VITALS: BP 120/62
[2016-11-12] MEDS: GLYTROL 1,000 ML BAG GT PRN (12:23)
[2016-11-12] MEDS ORDERED: MERO1VIA IV (13:28)
[2016-11-12 16:00] VITALS: BP 130/76
[2016-11-12 20:00] VITALS: BP 131/75
[2016-11-12] MEDS: INSULIN DETEMIR 100 UNIT/ML CARTRIDGE SQ SCH (22:48)
[2016-11-13] VITALS: BP 130/78
[2016-11-13] MEDS: IPRATROPIUM NEB FS 0.5 MG/2.5 ML AMPUL.NEB NEB SCH ×5 (01:13→19:22)
[2016-11-13] MEDS: ALBUTEROL FS 2.5 MG/3 ML VIAL.NEB NEB SCH ×5 (01:13→19:22)
[2016-11-13] MEDS: GLYTROL 1,000 ML BAG GT PRN ×2 (02:50→17:34)
[2016-11-13 04:00] VITALS: BP 144/99
[2016-11-13] MEDS: METRONIDAZOLE 500 MG TABLET PO SCH ×3 (05:43→21:19)
[2016-11-13] MEDS: LORAZEPAM 1 MG TABLET GT SCH ×4 (05:43→23:55)
[2016-11-13] MEDS: MEROPENEM 1 G in IV NS 0.9% 100 ML IV SCH ×3 (05:43→21:19)
[2016-11-13] MEDS: BLOOD SUGAR DIAGNOSTIC 1 EACH STRIP IN SCH ×3 (05:44→17:33)
[2016-11-13] MEDS: GABAPENTIN 100 MG CAPSULE GT SCH ×4 (05:44→23:54)
[2016-11-13 08:00] VITALS: BP 144/97
[2016-11-13] MEDS: FERROUS SULFATE UDC 300 MG/5 ML UDC GT SCH ×3 (10:19→17:35)
[2016-11-13] MEDS: MULTIVITAMIN LIQ 5 ML UDC GT SCH (10:19)
[2016-11-13] MEDS: SUCRALFATE 1 G/10 ML UDC GT SCH ×4 (10:19→21:19)
[2016-11-13] MEDS: DIGOXIN 0.125 MG TABLET GT SCH ×2 (10:19→17:35)
[2016-11-13] MEDS: PROSOURCE / PROSTAT (PYXIS) 30 ML UDC GT SCH (10:19)
[2016-11-13] MEDS: PHENOBARBITAL 30 MG TABLET GT SCH ×2 (10:20→17:36)
[2016-11-13] MEDS: SILDENAFIL CITRATE 20 MG TABLET GT SCH ×3 (10:20→17:36)
[2016-11-13] MEDS: ACIDOPHILUS/BULGARICUS 1 EACH TAB.CHEW PO SCH ×3 (10:20→17:36)
[2016-11-13] MEDS: BACLOFEN (10 MG) 10 MG TABLET GT SCH ×3 (10:20→17:36)
[2016-11-13] MEDS: PANTOPRAZOLE 40 MG/PACK PACK GT SCH (10:20)
[2016-11-13] MEDS: ASCORBIC ACID 500 MG TABLET GT SCH (10:20)
[2016-11-13] MEDS: POTASSIUM CHLORIDE 20 MEQ POWDER PACKET GT SCH (10:22)
[2016-11-13] MEDS: HYDROGEL DRESSING 90 GM TUBE TP SCH (10:23)
[2016-11-13 12:00] VITALS: BP 135/85
[2016-11-13 16:00] VITALS: BP 128/86
[2016-11-13 20:00] VITALS: BP 124/84
[2016-11-13] MEDS: INSULIN DETEMIR 100 UNIT/ML CARTRIDGE SQ SCH (21:33)
[2016-11-14] VITALS: BP 122/91
[2016-11-14] MEDS: BLOOD SUGAR DIAGNOSTIC 1 EACH STRIP IN SCH ×5 (00:04→23:58)
[2016-11-14] MEDS: ALBUTEROL FS 2.5 MG/3 ML VIAL.NEB NEB SCH ×4 (01:03→20:01)
[2016-11-14] MEDS: IPRATROPIUM NEB FS 0.5 MG/2.5 ML AMPUL.NEB NEB SCH ×4 (01:04→20:01)
[2016-11-14] MEDS: IV NS 0.9% 1,000 ML IV PRN (03:15)
[2016-11-14 04:00] VITALS: BP 128/58
[2016-11-14] MEDS: GABAPENTIN 100 MG CAPSULE GT SCH ×3 (05:25→17:38)
[2016-11-14] MEDS: METRONIDAZOLE 500 MG TABLET PO SCH ×3 (05:25→21:18)
[2016-11-14] MEDS: LORAZEPAM 1 MG TABLET GT SCH ×3 (05:25→17:38)
[2016-11-14] MEDS: MEROPENEM 1 G in IV NS 0.9% 100 ML IV SCH ×3 (05:26→21:17)
[2016-11-14 08:00] VITALS: BP 145/93
[2016-11-14] MEDS: PROSOURCE / PROSTAT (PYXIS) 30 ML UDC GT SCH (09:07)
[2016-11-14] MEDS: MULTIVITAMIN LIQ 5 ML UDC GT SCH (09:07)
[2016-11-14] MEDS: SUCRALFATE 1 G/10 ML UDC GT SCH ×4 (09:08→21:17)
[2016-11-14] MEDS: ASCORBIC ACID 500 MG TABLET GT SCH (09:08)
[2016-11-14] MEDS: FERROUS SULFATE UDC 300 MG/5 ML UDC GT SCH ×3 (09:08→17:38)
[2016-11-14] MEDS: BACLOFEN (10 MG) 10 MG TABLET GT SCH ×3 (09:09→17:38)
[2016-11-14] MEDS: PHENOBARBITAL 30 MG TABLET GT SCH ×2 (09:09→17:39)
[2016-11-14] MEDS: DIGOXIN 0.125 MG TABLET GT SCH ×2 (09:10→17:38)
[2016-11-14] MEDS: SILDENAFIL CITRATE 20 MG TABLET GT SCH ×3 (09:10→17:39)
[2016-11-14] MEDS: ACIDOPHILUS/BULGARICUS 1 EACH TAB.CHEW PO SCH ×3 (09:10→17:38)
[2016-11-14] MEDS: PANTOPRAZOLE 40 MG/PACK PACK GT SCH (09:11)
[2016-11-14] MEDS: POTASSIUM CHLORIDE 20 MEQ POWDER PACKET GT SCH (09:11)
[2016-11-14] MEDS: GLYTROL 1,000 ML BAG GT PRN (09:12)
[2016-11-14] MEDS: HYDROGEL DRESSING 90 GM TUBE TP SCH (09:41)
[2016-11-14 12:00] VITALS: BP 118/76
[2016-11-14 16:00] VITALS: BP 118/53
[2016-11-14 20:00] VITALS: BP 148/95
[2016-11-14] MEDS: INSULIN DETEMIR 100 UNIT/ML CARTRIDGE SQ SCH (21:30)
[2016-11-15] VITALS: BP 144/98
[2016-11-15] MEDS: LORAZEPAM 1 MG TABLET GT SCH ×3 (00:01→12:40)
[2016-11-15] MEDS: GABAPENTIN 100 MG CAPSULE GT SCH ×3 (00:02→12:40)
[2016-11-15] MEDS: IPRATROPIUM NEB FS 0.5 MG/2.5 ML AMPUL.NEB NEB SCH ×3 (02:27→13:11)
[2016-11-15] MEDS: ALBUTEROL FS 2.5 MG/3 ML VIAL.NEB NEB SCH ×3 (02:27→13:11)
[2016-11-15 04:00] VITALS: BP 141/84
[2016-11-15] MEDS: GLYTROL 1,000 ML BAG GT PRN (04:03)
[2016-11-15] MEDS: MEROPENEM 1 G in IV NS 0.9% 100 ML IV SCH ×2 (05:19→12:40)
[2016-11-15] MEDS: METRONIDAZOLE 500 MG TABLET PO SCH ×2 (05:20→12:40)
[2016-11-15] MEDS: BLOOD SUGAR DIAGNOSTIC 1 EACH STRIP IN SCH ×2 (05:46→11:31)
[2016-11-15 08:00] VITALS: BP 127/87
[2016-11-15 08:02] LABS: BASOPHILS % (AUTO) 0.1 % (0.0-2.0); DIFF TOTAL % 100 %; EOSINOPHILS # (AUTO) 0.2 /CMM (0.0-0.7); EOSINOPHILS % (AUTO) 1.9 % (0.0-6.0); HEMATOCRIT 32 % (39-51); HEMOGLOBIN 10.1 g/dL (13.5-17.5); LYMPHOCYTES # (AUTO) 1.3 /CMM (0.8-4.8); LYMPHOCYTES % (AUTO) 13.4 % (20.0-44.0); MEAN CORPUSCULAR HEMOGLOBIN 22 PG (26.0-33.0); MEAN CORPUSCULAR HGB CONC 31 g/dl (31.0-36.0); MEAN CORPUSCULAR VOLUME 70 fL (80-96); MONOCYTES # (AUTO) 0.7 /CMM (0.1-1.30); MONOCYTES % (AUTO) 7.4 % (2.0-12.0); NEUTROPHILS # (AUTO) 7.4 /CMM (1.8-8.9); NEUTROPHILS % (AUTO) 77.2 % (43.0-81.0); PLATELET COUNT (AUTO) 269 /CMM (150-450); RED BLOOD CELL COUNT(AUTO) 4.64 MIL/uL (4.5-6.0); WHITE BLOOD COUNT (AUTO) 9.6 K/uL (4.3-11.0)
[2016-11-15 08:22] LABS: CALCIUM, SERUM 8.9 mg/dL (8.5-10.1); CREATININE 0.5 mg/dL (0.6-1.3); PHOSPHORUS 3.6 mg/dL (2.5-4.9); POTASSIUM 4.4 mmol/L (3.5-5.1)
[2016-11-15 10:29] LABS: ANISOCYTOSIS 2+; HYPOCHROMASIA 2+; LYMPHOCYTES % (MANUAL) 13 % (16-48); MICROCYTOSIS 3+; PLATELET ESTIMATE ADEQUATE
[2016-11-15] MEDS: BACLOFEN (10 MG) 10 MG TABLET GT SCH ×2 (11:06→12:41)
[2016-11-15] MEDS: PHENOBARBITAL 30 MG TABLET GT SCH (11:06)
[2016-11-15] MEDS: PANTOPRAZOLE 40 MG/PACK PACK GT SCH (11:06)
[2016-11-15] MEDS: ASCORBIC ACID 500 MG TABLET GT SCH (11:07)
[2016-11-15] MEDS: DIGOXIN 0.125 MG TABLET GT SCH (11:07)
[2016-11-15] MEDS: POTASSIUM CHLORIDE 20 MEQ POWDER PACKET GT SCH (11:10)
[2016-11-15] MEDS: FERROUS SULFATE UDC 300 MG/5 ML UDC GT SCH ×2 (11:10→12:40)
[2016-11-15] MEDS: PROSOURCE / PROSTAT (PYXIS) 30 ML UDC GT SCH (11:10)
[2016-11-15] MEDS: SUCRALFATE 1 G/10 ML UDC GT SCH ×2 (11:10→12:40)
[2016-11-15] MEDS: MULTIVITAMIN LIQ 5 ML UDC GT SCH (11:10)
[2016-11-15] MEDS ORDERED: SECONDARY IV SET 1 EA INFUS.SET MC ONE (11:11)
[2016-11-15] MEDS: ACIDOPHILUS/BULGARICUS 1 EACH TAB.CHEW PO SCH ×2 (11:12→12:40)
[2016-11-15] MEDS: SILDENAFIL CITRATE 20 MG TABLET GT SCH ×2 (11:12→12:41)
[2016-11-15] MEDS: HYDROGEL DRESSING 90 GM TUBE TP SCH (11:13)
[2016-11-15] MEDS: Magnesium 1GM/D5W 100ML PREMIX 100 ML IV SCH ×3 (11:14→14:21)
[2016-11-15 12:00] VITALS: BP 122/78
[2016-11-15] MEDS ORDERED: Magnesium 1GM/D5W 100ML PREMIX 100 ML IV SCH ×2 (12:30→15:00)
[2016-11-15] MEDS ORDERED: MERO1VIA IV (14:02)
== END 2016-11-15 15:41 | DRG 720 ==
LOC: ER 00:49 → TELE1 02:27
PROVIDERS: ADMIT Contractor; ATTEND Student in an Organized Health Care Education/Training Program
PROC: 5A1955Z Respiratory Ventilation, Greater than 96 Consecutive Hours (ICD-10-PCS; principal; 2016-11-05)
PROC: 05H633Z Insertion of Infusion Device into Left Subclavian Vein, Percutaneous Approach (ICD-10-PCS; 2016-11-05)
DX: A41.50 Gram-negative sepsis, unspecified (principal); N17.0 Acute kidney failure with tubular necrosis; J18.9 Pneumonia, unspecified organism; Z99.11 Dependence on respirator [ventilator] status; G93.40 Encephalopathy, unspecified; E43 Unspecified severe protein-calorie malnutrition; J96.11 Chronic respiratory failure with hypoxia; R53.2 Functional quadriplegia; E87.8 Other disorders of electrolyte and fluid balance, not elsewhere classified; Z93.1 Gastrostomy status; R13.10 Dysphagia, unspecified; N39.0 Urinary tract infection, site not specified; E78.5 Hyperlipidemia, unspecified; E66.9 Obesity, unspecified; G40.909 Epilepsy, unspecified, not intractable, without status epilepticus; E87.1 Hypo-osmolality and hyponatremia; E86.0 Dehydration; D50.9 Iron deficiency anemia, unspecified; A04.7 Enterocolitis due to Clostridium difficile; E87.6 Hypokalemia; E83.42 Hypomagnesemia; B96.20 Unspecified Escherichia coli [E. coli] as the cause of diseases classified elsewhere; E11.9 Type 2 diabetes mellitus without complications; I10 Essential (primary) hypertension; Z87.440 Personal history of urinary (tract) infections; Z68.34 Body mass index [BMI] 34.0-34.9, adult
CPT/HCPCS: 31720; 36415; 71010-TC; 80048-TC; 80053-TC; 80061-TC; 80076-TC; 80202-TC; 81000-TC; 82040-TC; 82728-TC; 82962-TC; 83540-TC; 83605-TC; 83735-TC; 84100-TC; 84155; 84165; 84443-TC; 84484-TC; 85025-TC; 85730-TC; 87040-TC; 87081-TC; 87086-TC; 87186-TC; 94002-TC; 94003-TC; 94760-TC; A4216; A4606; A6248; A6402; A7526; J0696; J1815; J1940; J2185; J2543; J3370; J3475; J3480; J7030; J7040; J7060; P9047; Q2036; Z7610